=== PATIENT | female | born 1930 | race Caucasian/White ===

== ENCOUNTER → 2017-04-17 | Outpatient (CLI) | payer MEDICARE ==
[~2017-04-17] MED LIST: GABA-585 PO; LISI2.5T PO
--- NOTE | 2017-04-17 16:51 | RAD ---
Three-view right ankle study History: Right ankle pain Findings: There is a nondisplaced vertical fracture of the medial aspect of the distal right tibia involving the metaphysis and extending through the articular surface at the junction of the tibial plafond with the medial malleolus. There is anterior subluxation of the talus with respect to the tibia. No osteolytic process is seen. Prominent plantar spur of the calcaneus is evident. IMPRESSION: Fracture of the distal right tibia with anterior subluxation of the talus with respect to the distal right tibia. Note-this report was called to Kamille Lim at 4:47 PM on April 17, 2017.
== END | disposition home or self-care (01) ==
LOC: RAD 15:44
PROVIDERS: ATTEND Nurse Practitioner Family
DX: S82.301A Unspecified fracture of lower end of right tibia, initial encounter for closed fracture (principal); M77.31 Calcaneal spur, right foot
CPT/HCPCS: 73610

== ENCOUNTER → 2017-04-25 | Outpatient (CLI) | payer MEDICARE ==
--- NOTE | 2017-04-25 17:05 | RAD ---
3 views right ankle radiograph 04/25/2017 Clinical indication: Injury to the right ankle. Comparison: Right ankle radiograph 04/17/2017 Findings: There is diffuse bony demineralization. There is decreased conspicuity of a probable nondisplaced vertical fracture of the distal tibial metadiaphysis with probable intra-articular extension. There is unchanged anterior subluxation of the talus relative to the tibia. There is mild tibiotalar arthrosis with osteophytic spurring. There is infracalcaneal spurring. Impression: 1. Decreased conspicuity of a probable nondisplaced vertically oriented fracture of the medial distal tibial metadiaphysis with concern for intra-articular extension. 2. Stable anterior subluxation of the talus relative to the tibia. 3. Diffuse bony demineralization which limits evaluation for subtle fracture deformities.
== END | disposition home or self-care (01) ==
LOC: DXRAD 11:45
PROVIDERS: ATTEND Orthopaedic Surgery Sports Medicine
DX: S99.911A Unspecified injury of right ankle, initial encounter (principal); M81.0 Age-related osteoporosis without current pathological fracture; M25.871 Other specified joint disorders, right ankle and foot
CPT/HCPCS: 73610

== ENCOUNTER → 2017-05-08 | Outpatient (CLI) | payer MEDICARE ==
--- NOTE | 2017-05-08 11:34 | RAD ---
ANKLE RIGHT 3V Clinical Indication: PAIN Comparison: Ankle radiographs dated 04/25/2017 Findings: No significant change in position or alignment of the distal tibial metadiaphysis vertical fracture. Some bony bridging seen. No new fracture or malalignment. 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 Calcaneal enthesophytes. Suggestion of diffuse osteopenia. Vascular calcifications. Mild soft tissue swelling of the ankle. No radiopaque foreign body. IMPRESSION: 1. No significant change in position or alignment of the distal tibial metadiaphysis vertical fracture. Some bony bridging seen. No new fracture or malalignment. 2. Mild soft tissue swelling of the ankle. 3. 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
== END | disposition home or self-care (01) ==
LOC: DXRAD 10:33
PROVIDERS: ATTEND Orthopaedic Surgery Sports Medicine
DX: M25.571 Pain in right ankle and joints of right foot (principal); M19.071 Primary osteoarthritis, right ankle and foot; M25.471 Effusion, right ankle
CPT/HCPCS: 73610

== ENCOUNTER → 2017-05-23 | Outpatient (CLI) | payer MEDICARE ==
--- NOTE | 2017-05-23 12:22 | RAD ---
Indication: Follow-up ankle fracture. Technique: 3 views of the right ankle are submitted for review. Comparison studies from April were reviewed in comparison. Findings: There is some callus formation noted at the distal tibial fracture site. Fracture line is less apparent on the current study although a portion of the fracture line remains visible. An additional fracture is not identified and there is no dislocation. There is mild soft tissue swelling. Impression: Healing distal tibial fracture.
== END | disposition home or self-care (01) ==
LOC: DXRAD 10:31
PROVIDERS: ATTEND Orthopaedic Surgery Sports Medicine
DX: M25.571 Pain in right ankle and joints of right foot (principal); M25.771 Osteophyte, right ankle; S82.391S Other fracture of lower end of right tibia, sequela; X58.XXXS Exposure to other specified factors, sequela
CPT/HCPCS: 73610

== ENCOUNTER 2017-08-08 16:51 | Inpatient (IN) | payer MEDICARE ==
[~2017-08-08] VITALS: Ht 157.5 cm; Wt 91.6 kg
[2017-08-08] MEDS ORDERED: IV NORMAL SALINE 1,000ML 1,000 ML IV SCH (17:36)
[2017-08-08] MEDS ORDERED: 0.9 % SODIUM CHLORIDE 10 ML DISP.SYRIN. IV PRN (17:45)
--- NOTE | 2017-08-08 17:50 | PHYS DOC ---
Past History Past Medical History: High Cholesterol, Hypertension Adult General Chief Complaint Chief Complaint: weakness HPI HPI 87-year-old female patient who lives at assisted-living home brought by her daughters because of generalized weakness and increasing urination. Patient wears depends at night and complaining of more urine incontinence and wetting her depends at night. Patient states she had one episode of vomiting 4 days ago complaining of generalized weakness and confusion. Patient's daughter states she does not acting like her usual and is more weak and confused. Patient's daughter thinks she is dehydrated because she doesn't drink liquids to not have urine incontinence and accident. Patient denies chest pain, shortness of breath , fever and chills. She complained of marked congestion. Review of Systems Review of Systems Constitutional: Denies fever or chills, reports generalized weakness [] Eyes: Denies change in visual acuity, redness, or eye pain [] HENT: Denies nasal congestion or sore throat [] Respiratory: Denies cough or shortness of breath [] Cardiovascular: No additional information not addressed in HPI [] GI: Denies abdominal pain, bloody stools or diarrhea, reports nausea and vomiting [] : Denies dysuria or hematuria [] Musculoskeletal: Denies back pain or joint pain [] Integument: Denies rash or skin lesions [] Neurologic: Denies headache, focal weakness or sensory changes, reports confusion [] Endocrine: Denies polyuria or polydipsia [] All other systems were reviewed and found to be within normal limits, except as documented in this note. Current Medications Current Medications Current Medications Medications (Trade) Dose Ordered Sig/Margo Start Time Stop Time Status Last Admin Dose Admin Sodium Chloride (Normal Saline Flush) 10 ml QSHIFT PRN 08/08/17 17:45 Allergies Allergies Allergies Coded Allergies Type Severity Reaction Last Updated Verified No Known Drug Allergies 04/21/16 No Physical Exam Physical Exam Constitutional: Well developed, well nourished, mild distress, non-toxic appearance. [] HENT: Normocephalic, atraumatic, bilateral external ears normal, oropharynx moist, no oral exudates, nose normal. [] Eyes: PERRLA, EOMI, conjunctiva normal, no discharge. [] Neck: Normal range of motion, no tenderness, supple, no stridor. [] Cardiovascular:Heart rate regular rhythm, no murmur [] Lungs & Thorax: Bilateral breath sounds clear to auscultation [] Abdomen: Bowel sounds normal, soft, no tenderness, no masses, no pulsatile masses. [] Skin: Warm, dry, no erythema, no rash. [] Back: No tenderness, no CVA tenderness. [] Extremities: No tenderness, no cyanosis, no clubbing, ROM intact, no edema. [] Neurologic: Alert and oriented X 3, normal motor function, normal sensory function, no focal deficits noted. [] Psychologic: Affect normal, judgement normal, mood normal. [] EKG EKG [] Radiology/Procedures Radiology/Procedures [] Course & Med Decision Making Course & Med Decision Making Pertinent Labs are pending. Patient had a catheter UA with cloudy colored urine. Patient had blood pressure of 98/59 without tachycardia or fever or confusion. IV fluid and that was ordered. Patient care transferred to Dr. Carrion At [address]. See Dr[address] Horner report for details prior 1800 hrs. Impression: 1. Sepsis 2. UTI 3. Elevated Lactic Acid 4. Acute on Chronic Renal Failure 5. Leukocytosis and Thrombocytopenia 6. Elevated LFT's 7. Mild Hypotension 8. DM Discussed presentation, testing and tx. plan with Dr. Rae- will admit for further hydration, antibiotic and evaluation. Dragon Disclaimer Dragon Disclaimer This electronic medical record was generated, in whole or in part, using a voice recognition dictation system. Departure Departure: Impression: Primary Impression: Generalized weakness Referrals: KARRIE GOLDSMITH APRN (PCP) IRENA HORNER MD Aug 08, 2017 17:50 DENEEN CARRION MD Aug 08, 2017 18:06
[2017-08-08 18:00] LABS: CLARITY,URINE CLOUDY; COLOR,URINE YELLOW; GLUCOSE,URINE NEG (NEG)
[2017-08-08 18:00] LABS: BASO % 0 % (0-3); EOS % 0 % (0-3); HEMOGLOBIN 14.4 g/dL (12.0-15.5); LYMPH # 0.8 x10^3/uL (1.0-4.8); LYMPH % 2 % (24-48); MEAN CORPUSCULAR HEMOGLOBIN 31 pg (25-35); MEAN CORPUSCULAR HGB CONC 33 g/dL (31-37); MEAN CORPUSCULAR VOLUME 95 fL (79-100); MONO # 1.8 x10^3/uL (0.0-1.1); MONO % 5 % (0-9); NEUT # 33.5 x10^3uL (1.8-7.7); NEUT % 93 % (31-73); PLATELET COUNT 114 x10^3/uL (140-400); RED BLOOD COUNT 4.62 x10^6/uL (3.50-5.40); RED CELL DISTRIBUTION WIDTH 14.4 % (11.5-14.5); WHITE BLOOD COUNT 36.1 x10^3/uL (4.0-11.0)
[2017-08-08 18:01] LABS: AMORPHOUS SEDIMENT,UR PRESENT /HPF; BACTERIA,URINE MOD /HPF (0-FEW); BILIRUBIN,URINE MOD (NEG); NITRITE,URINE POS (NEG); SQUAMOUS EPITHELIAL CELL,UR OCC /LPF; UROBILINOGEN,URINE 1 mg/dL (0.2 mg/dL); WBC,URINE 20-40 /HPF (0-4)
[2017-08-08 18:17] LABS: ALBUMIN 3.4 g/dL (3.4-5.0); ALBUMIN/GLOBULIN RATIO 0.9 (1.0-1.7); CALCIUM 9.3 mg/dL (8.5-10.1); CREATININE 3.3 mg/dL (0.6-1.0); GFR 13.3; POTASSIUM 4.4 mmol/L (3.5-5.1); TOTAL BILIRUBIN 0.8 mg/dL (0.2-1.0); TOTAL PROTEIN 7.2 g/dL (6.4-8.2)
[2017-08-08] MEDS ORDERED: cefTRIAXone IV Push 1 GM VIAL. IVP ONE (18:30)
[2017-08-08] MEDS ORDERED: IV NORMAL SALINE 1,000ML 1,000 ML IV STA (18:45)
[2017-08-08] MEDS ORDERED: ONDANSETRON PF 4 MG/2 ML VIAL. IV PRN (18:45)
[2017-08-08 20:00] VITALS: BP 95/51
[2017-08-08] MEDS ORDERED: TRAM50TA PO (20:45)
[2017-08-08] MEDS ORDERED: OMEP20CA9 PO (20:53)
[2017-08-08] MEDS ORDERED: GABA-585 PO (20:53)
[2017-08-08] MEDS ORDERED: CRESTOR5 MG PO (20:53)
[2017-08-08] MEDS ORDERED: CALC500T30 PO (20:53)
[2017-08-08] MEDS ORDERED: LISI10TA2 PO (20:53)
[2017-08-08] MEDS ORDERED: MULT1TAB97 PO (20:55)
[2017-08-08] MEDS ORDERED: ACET325T9 PO (20:55)
[2017-08-08] MEDS ORDERED: ASPI-630 PO (20:55)
[2017-08-08] MEDS ORDERED: IBUP400T18 PO (20:56)
[2017-08-08 21:00] VITALS: BP 87/50
[2017-08-08] MEDS ORDERED: levoFLOXacin 500 MG TABLET PO SCH (21:00)
[2017-08-08] MEDS ORDERED: traMADol 50 MG TABLET PO PRN (21:15)
[2017-08-08 22:00] VITALS: BP 114/60
[2017-08-08] MEDS: GABAPENTIN 400 MG CAPSULE. PO SCH (22:18)
[2017-08-08] MEDS: LACTOBACILLUS RHAMNOSUS GG 1 CAPSULE. PO SCH (22:18)
[2017-08-08] MEDS: ATORVASTATIN CALCIUM 20 MG TABLET PO SCH (22:18)
[2017-08-08 22:24] LABS: % LYMPHS 3 % (24-48); % METAS 5 % (0-0); % MONOS 1 % (0-10)
[2017-08-08 22:25] LABS: % SEGS 91 % (35-66)
[2017-08-08 22:27] LABS: OVALOCYTES OCC; PLT ESTIMATE ADEQUATE (ADEQUATE); POLYCHROMASIA SLIGHT; TOXIC GRANULATION SLIGHT
[2017-08-08 23:00] VITALS: BP 88/52
[2017-08-08 23:30] VITALS: BP 66/34
[2017-08-08 23:45] VITALS: BP 79/44
[2017-08-09] VITALS (54 sets, daily range): BP systolic 53–151; BP diastolic 27–87
[2017-08-09] MEDS ORDERED: NOREPINEPHRINE BITARTRATE 4 MG/4 ML VIAL. IV ONE (00:17)
[2017-08-09] MEDS: NOREPINEPHRINE BITARTRATE 8 MG in IV NORMAL SALINE 250ML 250 ML IV PRN ×2 (00:38→09:26)
[2017-08-09] MEDS ORDERED: IV NORMAL SALINE 1,000ML 1,000 ML IV ONE ×2 (01:15→03:15)
[2017-08-09] MEDS: IV NORMAL SALINE 1,000ML 1,000 ML IV SCH ×3 (04:32→20:31)
[2017-08-09] MEDS: PIPERACILLIN/TAZOBACTAM 2.25 GM in IV NORMAL SALINE 50ML 50 ML IV SCH ×3 (04:45→21:49)
[2017-08-09 06:55] LABS: BASO % 0 % (0-3); EOS % 0 % (0-3); HEMATOCRIT 38.9 % (36.0-47.0); HEMOGLOBIN 12.8 g/dL (12.0-15.5); LYMPH # 0.4 x10^3/uL (1.0-4.8); LYMPH % 2 % (24-48); MEAN CORPUSCULAR HEMOGLOBIN 32 pg (25-35); MEAN CORPUSCULAR HGB CONC 33 g/dL (31-37); MEAN CORPUSCULAR VOLUME 95 fL (79-100); MONO # 0.5 x10^3/uL (0.0-1.1); MONO % 2 % (0-9); NEUT # 23.9 x10^3uL (1.8-7.7); NEUT % 96 % (31-73); PLATELET COUNT 84 x10^3/uL (140-400); RED BLOOD COUNT 4.08 x10^6/uL (3.50-5.40); RED CELL DISTRIBUTION WIDTH 14.3 % (11.5-14.5); WHITE BLOOD COUNT 24.8 x10^3/uL (4.0-11.0)
[2017-08-09 06:58] LABS: CALCIUM 7.9 mg/dL (8.5-10.1); CREATININE 3.3 mg/dL (0.6-1.0); GFR 13.3; POTASSIUM 3.9 mmol/L (3.5-5.1)
--- NOTE | 2017-08-09 07:21 | EKG ---
[address] [address] Test Date: 2017-08-09 Test Time: 07:09:35 Pat Name: SHAYY BUCHANAN Department: Room: [facility] 1 Gender: F Liner Replacer: : [id number] Requested By: KATIE MONDRAGON Order Number: [id number] Reading MD: Measurements Intervals [place] Rate: 115 P: TX: QRS: -14 QRSD: 68 T: 26 QT: 292 QTc: 406 Interpretive Statements IRREGULAR RHYTHM, NO P-WAVE FOUND LEFTWARD AXIS QRS(T) CONTOUR ABNORMALITY CONSISTENT WITH INFERIOR INFARCT PROBABLY OLD ABNORMAL ECG RI6.01 No previous ECG available for comparison
[2017-08-09] MEDS: CALCIUM CARBONATE 500 MG TABLET PO SCH (07:59)
[2017-08-09] MEDS: MULTIVITAMIN I-VITE TABLET. PO SCH (07:59)
[2017-08-09] MEDS: ACETAMINOPHEN 325 MG TABLET PO PRN (07:59)
[2017-08-09] MEDS: PANTOPRAZOLE 40 MG TABLET. PO SCH (07:59)
[2017-08-09] MEDS: ASPIRIN 81 MG TAB.CHEW PO SCH (07:59)
[2017-08-09] MEDS: LACTOBACILLUS RHAMNOSUS GG 1 CAPSULE. PO SCH ×2 (07:59→21:49)
[2017-08-09] MEDS: GABAPENTIN 400 MG CAPSULE. PO SCH ×2 (07:59→21:49)
[2017-08-09] MEDS ORDERED: MAGNESIUM SULFATE 2GM 50 ML IV ONE (08:15)
[2017-08-09] MEDS ORDERED: cefTRIAXone IV Push 1 GM VIAL. IVP SCH (09:00)
[2017-08-09 09:09] LABS: INFLUENZA A PATIENT NEGATIVE (NEGATIVE); INFLUENZA B PATIENT NEGATIVE (NEGATIVE)
--- NOTE | 2017-08-09 09:11 | PDOC2 ---
JARED GALINDO APRN 08/09/17 0911: CONSULT Date of Admission DATE: 08/09/17 TIME: 09:09 Reason for Consult: tachycardia Problem List Problems Medical Problems: (1) Generalized weakness Status: Acute (2) UTI (urinary tract infection) Status: Acute History of Present Illness Ms Trimble is an 87 year old female with history of hypertension and hyperlipidemia who was brought to the ED by her daughters with complaints of generalized weakness, confusion and increased nocturia. She was found to have urosepsis and admitted for management. EKG revealed atrial fibrillation with RVR so consult was called. She denies any chest discomfort, dyspnea or palpitations. She has no prior history of atrial fibrillation. She denies lightheadedness or syncope. Her daughter reports that previously she would complain of increased nocturia when she had UTIs and they had planned a follow up with PCP but with other symptoms came to ED instead. Past Medical History HTN, HLD, renal cyst and kidney stones, recurrent UTIs Past Surgical History back surgery x 2 secondary to benign mass, bilateral knee surgery, hip surgery, cholecystectomy Family History non contributory due to age Social History remote history of tobacco use, no significant ETOH, no illicit drugs, lives in assisted living facility. Current Medications Current Medications Sodium Chloride 1,000 ml @ 1,000 mls/hr Q1H IV Last administered on 08/08/17at 17:50; Start 08/08/17 at 17:36; Stop 08/08/17 at 18:35; Status DC Sodium Chloride (Normal Saline Flush) 10 ml QSHIFT PRN IV AFTER MEDS AND BLOOD DRAWS; Start 08/08/17 at 17:45 Ceftriaxone Sodium 1 gm/ Sodium Chloride 50 ml @ 100 mls/hr 1X ONCE IV ; Start 08/08/17 at 18:15; Stop 08/08/17 at 18:44; Status UNV Ceftriaxone Sodium (Rocephin) 1 gm 1X ONCE IVP Last administered on 08/08/17at 18:30; Start 08/08/17 at 18:30; Stop 08/08/17 at 18:31; Status DC Ondansetron HCl (Zofran) 4 mg PRN Q4HRS PRN IV NAUSEA/VOMITING; Start 08/08/17 at 18:45; Stop 08/09/17 at 18:44 Ceftriaxone Sodium 1 gm/ Sodium Chloride 50 ml @ 100 mls/hr BID IV ; Start at 21:00; Status UNV Levofloxacin (Levaquin) 500 mg Q24H PO Last administered on 08/08/17at 22:18; Start 08/08/17 at 21:00; Stop 08/09/17 at 03:10; Status DC Sodium Chloride 1,000 ml @ 2,000 mls/hr 1X STAT IV Last administered on at 21:32; Start 08/08/17 at 18:45; Stop 08/08/17 at 19:14; Status DC Lactobacillus Rhamnosus (Culturelle) 1 cap BID PO Last administered on at 07:59; Start 08/08/17 at 21:00 Ceftriaxone Sodium (Rocephin) 1 gm BID IVP ; Start 08/09/17 at 09:00; Stop 08/09 at 09:00; Status DC Acetaminophen (Tylenol) 650 mg PRN Q6HRS PRN PO PAIN / TEMP Last administered on 08/09/17at 07:59; Start 08/08/17 at 21:15 Aspirin (Children'S Aspirin) 81 mg DAILY PO Last administered on 08/09/17at 07: 59; Start 08/09/17 at 09:00 Calcium Carbonate/ Glycine (Oscal) 500 mg DAILY PO Last administered on at 07:59; Start 08/09/17 at 09:00 Gabapentin (Neurontin) 400 mg BID PO Last administered on 08/09/17at 07:59; Start 08/08/17 at 21:30 Tramadol HCl (Ultram) 50 mg PRN Q6HRS PRN PO PAIN; Start 08/08/17 at 21:15 Multivitamins/ Minerals (I-Siva) 1 tab DAILY PO Last administered on 08/09/17at 07:59; Start 08/09/17 at 09:00 Pantoprazole Sodium (Protonix) 40 mg DAILYAC PO Last administered on 08/09/17at 07:59; Start 08/09/17 at 07:30 Atorvastatin Calcium (Lipitor) 20 mg QHS PO Last administered on 08/08/17at 22: 18; Start 08/08/17 at 21:30 Norepinephrine Bitartrate 8 mg/ Sodium Chloride 258 ml @ 0 mls/hr CONT PRN IV SEE I/O RECORD Last administered on 08/09/17at 00:38; Start 08/09/17 at 00:15 Norepinephrine Bitartrate (Levophed) 4 mg STK-MED ONCE IV ; Start 08/09/17 at 00 :17; Stop 08/09/17 at 00:18; Status DC Sodium Chloride 1,000 ml @ 2,000 mls/hr 1X ONCE IV Last administered on at 22:40; Start 08/09/17 at 01:15; Stop 08/09/17 at 01:44; Status DC Piperacillin Sod/ Tazobactam Sod 2.25 gm/Sodium Chloride 50 ml @ 100 mls/hr Q8HRS IV Last administered on 08/09/17at 04:45; Start 08/09/17 at 06:00 Linezolid 300 ml @ 300 mls/hr Q12HR IV Last administered on 08/09/17at 08:00; Start 08/09/17 at 09:00 Sodium Chloride 1,000 ml @ 1,000 mls/hr 1X ONCE IV Last administered on at 03:32; Start 08/09/17 at 03:15; Stop 08/09/17 at 04:47; Status DC Sodium Chloride 1,000 ml @ 125 mls/hr Q8H IV Last administered on 08/09/17at 04 :32; Start 08/09/17 at 03:15 Magnesium Sulfate 50 ml @ 25 mls/hr 1X ONCE IV ; Start 08/09/17 at 08:15; Stop 08/09/17 at 10:14 Active Scripts Active Reported Ibuprofen 400 Mg Tablet 1 Tab PO PRN Q6HRS PRN Tylenol (Acetaminophen) 325 Mg Tablet 650 Mg PO PRN Q4-6HRS PRN Daily Multiple Vitamin (Multivitamin) 1 Each Tablet 1 Each PO Aspirin 81 Mg Tab.chew 81 Mg PO DAILY Calcium (Calcium Carbonate) 500 Mg Tablet 500 Mg PO DAILY Crestor (Rosuvastatin Calcium) 5 Mg Tablet 1 Tab PO Q2DAYS Lisinopril 10 Mg Tablet 1 Tab PO DAILY Omeprazole 20 Mg Capsule.dr 1 Cap PO DAILY Gabapentin 100 Mg Capsule 400 Mg PO BID Tramadol Hcl (Tramadol HCl) 50 Mg Tablet 50 Mg PO PRN Q6HRS PRN Allergies: Coded Allergies: No Known Drug Allergies (Unverified , 04/21/16) Review of System as per HPI General: Alert, Oriented X3, Cooperative, No acute distress HEENT: Atraumatic, EOMI, Mucous membr. moist/pink Lungs: Clear to auscultation, Normal air movement Heart: Regular rate, Normal S1, Normal S2 Abdomen: Normal bowel sounds, Soft, No tenderness Extremities: No cyanosis, Normal pulses Neuro: Normal speech, Strength at 5/5 X4 ext Psych/Mental Status: Mental status NL, Mood NL VITALS Vital Signs Date Time Temp Pulse Resp B/P (MAP) Pulse Ox O2 Delivery O2 Flow Rate FiO2 08/09/17 08:27 Room Air 08/09/17 08:27 100.7 08/09/17 08:26 102 20 100/73 (82) 97 2.0 Labs Laboratory Tests Test 08/08/17 17:25 08/08/17 17:40 08/08/17 21:55 08/08/17 22:50 Urine Collection Type U cath Urine Color Yellow Urine Clarity Cloudy Urine pH 5.0 Urine Specific [place] 1.025 Urine Protein 100 mg/dl (NEG-TRACE) Urine Glucose (UA) Neg mg/dL (NEG) Urine Ketones (Stick) 15 mg/dL (NEG) Urine Blood Mod (NEG) Urine Nitrite Pos (NEG) Urine Bilirubin Mod (NEG) Urine Urobilinogen Dipstick 1 mg/dL (0.2 mg/dL) Urine Leukocyte Esterase Large (NEG) Urine RBC 3-5 /HPF (0-2) Urine WBC 20-40 /HPF (0-4) Urine Squamous Epithelial Cells Occ /LPF Urine Amorphous Sediment Present /HPF Urine Bacteria Mod /HPF (0-FEW) Urine Mucus Mod /LPF White Blood Count 36.1 x10^3/uL (4.0-11.0) Red Blood Count 4.62 x10^6/uL (3.50-5.40) Hemoglobin 14.4 g/dL (12.0-15.5) Hematocrit 44.0 % (36.0-47.0) Mean Corpuscular Volume 95 fL (79-100) Mean Corpuscular Hemoglobin 31 pg (25-35) Mean Corpuscular Hemoglobin Concent 33 g/dL (31-37) Red Cell Distribution Width 14.4 % (11.5-14.5) Platelet Count 114 x10^3/uL (140-400) Neutrophils (%) (Auto) 93 % (31-73) Lymphocytes (%) (Auto) 2 % (24-48) Monocytes (%) (Auto) 5 % (0-9) Eosinophils (%) (Auto) 0 % (0-3) Basophils (%) (Auto) 0 % (0-3) Neutrophils # (Auto) 33.5 x10^3uL (1.8-7.7) Lymphocytes # (Auto) 0.8 x10^3/uL (1.0-4.8) Monocytes # (Auto) 1.8 x10^3/uL (0.0-1.1) Eosinophils # (Auto) 0.0 x10^3/uL (0.0-0.7) Basophils # (Auto) 0.0 x10^3/uL (0.0-0.2) Segmented Neutrophils % 91 % (35-66) Band Neutrophils % % (0-9) Lymphocytes % 3 % (24-48) Monocytes % 1 % (0-10) Metamyelocytes % 5 % (0-0) Toxic Granulation Slight Platelet Estimate Adequate (ADEQUATE) Large Platelets Occ Polychromasia Slight Ovalocytes Occ Sodium Level 140 mmol/L (136-145) Potassium Level 4.4 mmol/L (3.5-5.1) Chloride Level 102 mmol/L (98-107) Carbon Dioxide Level 21 mmol/L (21-32) Anion Gap 17 (6-14) Blood Urea Nitrogen 43 mg/dL (7-20) Creatinine 3.3 mg/dL (0.6-1.0) Estimated GFR (Cockcroft-Gault) 13.3 BUN/Creatinine Ratio 13 (6-20) Glucose Level 120 mg/dL (70-99) Lactic Acid Level 6.1 mmol/L (0.4-2.0) 5.9 mmol/L (0.4-2.0) Calcium Level 9.3 mg/dL (8.5-10.1) Total Bilirubin 0.8 mg/dL (0.2-1.0) Aspartate Amino Transf (AST/SGOT) 87 U/L (15-37) Alanine Aminotransferase (ALT/SGPT) 95 U/L (14-59) Alkaline Phosphatase 78 U/L (46-116) Troponin I Quantitative < 0.017 ng/mL (0-0.055) 0.019 ng/mL (0-0.055) Total Protein 7.2 g/dL (6.4-8.2) Albumin 3.4 g/dL (3.4-5.0) Albumin/Globulin Ratio 0.9 (1.0-1.7) Test 08/09/17 02:00 08/09/17 05:41 08/09/17 08:16 Lactic Acid Level 6.2 mmol/L (0.4-2.0) 5.0 mmol/L (0.4-2.0) White Blood Count 24.8 x10^3/uL (4.0-11.0) Red Blood Count 4.08 x10^6/uL (3.50-5.40) Hemoglobin 12.8 g/dL (12.0-15.5) Hematocrit 38.9 % (36.0-47.0) Mean Corpuscular Volume 95 fL (79-100) Mean Corpuscular Hemoglobin 32 pg (25-35) Mean Corpuscular Hemoglobin Concent 33 g/dL (31-37) Red Cell Distribution Width 14.3 % (11.5-14.5) Platelet Count 84 x10^3/uL (140-400) Neutrophils (%) (Auto) 96 % (31-73) Lymphocytes (%) (Auto) 2 % (24-48) Monocytes (%) (Auto) 2 % (0-9) Eosinophils (%) (Auto) 0 % (0-3) Basophils (%) (Auto) 0 % (0-3) Neutrophils # (Auto) 23.9 x10^3uL (1.8-7.7) Lymphocytes # (Auto) 0.4 x10^3/uL (1.0-4.8) Monocytes # (Auto) 0.5 x10^3/uL (0.0-1.1) Eosinophils # (Auto) 0.0 x10^3/uL (0.0-0.7) Basophils # (Auto) 0.0 x10^3/uL (0.0-0.2) Sodium Level 141 mmol/L (136-145) Potassium Level 3.9 mmol/L (3.5-5.1) Chloride Level 107 mmol/L (98-107) Carbon Dioxide Level 17 mmol/L (21-32) Anion Gap 17 (6-14) Blood Urea Nitrogen 47 mg/dL (7-20) Creatinine 3.3 mg/dL (0.6-1.0) Estimated GFR (Cockcroft-Gault) 13.3 Glucose Level 81 mg/dL (70-99) Calcium Level 7.9 mg/dL (8.5-10.1) Magnesium Level 1.3 mg/dL (1.8-2.4) Group A Streptococcus Rapid Negative (NEGATIVE) Images EKG - atrial fibrillation, early R transition Assessment/Plan 1. paroxysmal atrial fibrillation - currently in sinus rhythm. Check echo. 2. urosepsis / septic shock - currently on levophed and fluid resuscitation. Abx per PCP 3. ARF - fluids, monitor 4. hypertension - currently on pressors, hold antihypertensives 5. hyperlipidemia - continue statin 6. mild hepatic insufficiency - AST/ALT remain <3x ULN. Monitor. 7. hypomagnesemia - replace. Problems: ISABELLE CUENCA MD 08/09/17 1239: CONSULT Allergies: Coded Allergies: No Known Drug Allergies (Unverified , 04/21/16) Assessment/Plan Pt. seen and examined. Agree with above CHEMOTHERAPIST note. Critically ill due to urosepsis on pressors. EKG reviewed - reveals ST with PAC's. No afib. Cardiac exam unrevealing. NO clear signs of HF. Supportive care for now. Await echo results. Consider Phenylephrine for pressors if levophed causes significant tachycardia Discussed with RN Problems: JARED GALINDO APRN Aug 09, 2017 09:11 ISABELLE CUENCA MD Aug 09, 2017 12:39
--- NOTE | 2017-08-09 14:20 | RAD ---
Renal ultrasound, 08/09/2017: History: Abnormal renal function studies. The right kidney measures 10.2 cm in length, while the left kidney measures 10.6 cm. There is a 4.9 cm septated cyst versus cluster in the right kidney. There are 2 cysts in the right kidney with the largest of these measuring 3.3 cm. More numerous simple cysts were identified on a prior CT study of 04/21/2016. Small left renal calculi seen on the previous CT study are not clearly demonstrated on the ultrasound exam, probably due to technical factors. There is mild prominence of the left renal collecting system. The renal parenchymal echogenicity is otherwise within normal limits. The bladder is collapsed and not adequately delineated due to the presence of a bladder catheter. IMPRESSION: 1. Bilateral renal cysts. 2. Mild dilatation of left renal collecting system. If a left ureteral calculus is clinically suspected, CT scanning is suggested for further evaluation.
--- NOTE | 2017-08-09 14:50 | HP ---
ADMIT DATE: 08/08/2017 REASON FOR ADMISSION: This is an 87-year-old female who was brought to the Emergency Room from her home where she resides at assisted living because of generalized weakness and increased urination. According to the Emergency Room record she wears Depends at night and was complaining of more incontinence and wearing her Depends at night. Daughter states not acting like her usual self, more weak and tired and feels that she is dehydrated because she does not want to drink and become incontinent. The patient states she herself has been sick since Monday night. She threw up fatter Monday. She has been queasy, had some back pain, urinary frequency. Positive sore throat. Nothing wrong with her ears. Negative cough, negative shortness of breath. She denies weakness herself. 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 MEDICATIONS: Reviewed and are available on the AUG. IMMUNIZATIONS: Did get the flu shot last year and has had the pneumonia shot. REVIEW OF SYSTEMS: As per HPI, weak, flushed, febrile. OBJECTIVE: VITAL SIGNS: T-max is 100.7, this morning 99.7; blood pressure 111/78; pulse 96; respirations 18; pulse ox 97% on 2 liters. Face is quite flushed. HEENT: Hearing is normal. Nose was patent. Throat mildly injected in the posterior pharynx. NECK: Supple, without adenopathy. LUNGS: Clear to auscultation. CARDIOVASCULAR: Rapid rhythm and rate. ABDOMEN: Soft, mildly diffusely tender, but very soft. Bowel sounds are positive. EXTREMITIES: Without edema. LABORATORY DATA: White count was 36.1, platelets 114,000. Chemistry: BUN is 47, creatinine 3.3. Lactic acid was 6.2, now it is 5.0. She had a lactic acid of 6.1 yesterday afternoon and her BUN was 43 and creatinine was 3.3. Flu is negative. Strep is negative. Ultrasound report of her kidneys is pending. ASSESSMENT: 1. Acute renal failure. 2. Febrile illness. Flu was negative. 3. Dehydration. 4. Sepsis with urinary tract infection. 5. Frail elderly. 6. Hypertension. 7. Septic shock. PLAN: IV fluids. I and O. IV antibiotics. Is on Levophed currently and blood pressure is starting to improve. CONSUELO HUGHES DO DR: JESSI/sam JOB#: [id number] / [id number]
--- NOTE | 2017-08-09 16:50 | CARD ---
MR#: [id number] Date of Study: 08/09/2017 Ordering Physician: JARED GALINDO, Referring Physician: KATIE MONDRAGON Tech: ANSLEY Guillen APPROVED REPORT EXAM: Two-dimensional and M-mode echocardiogram with Doppler and color Doppler. Other Information Quality : AverageHR: 101bpm Technically limited study due to off axis heart. INDICATION Atrial Fibrillation 2D DIMENSIONS Left Atrium(2D)3.5 (1.6-4.0cm)IVSd1.2 (0.7-1.1cm) Aortic Root(2D)3.0 (2.0-3.7cm)LVDd4.5 (3.9-5.9cm) LVOT Diameter2.1 (1.8-2.4cm)PWd1.3 (0.7-1.1cm) LVDs3.2 (2.5-4.0cm)FS (%) 28.9 % SV51.1 mlLVEF(%)55.8 (>50%) Aortic Valve AoV Peak Bin.125.1cm/sAoV VTI21.0cm AO Peak GR.6.3mmHgLVOT Peak Bin.82.8cm/s AO Mean GR.4mmHgAVA (VMAX)2.38cm2 AI P 1/2 [id number] Mitral Valve MV E Wqbzckuj65.0cm/sMV E Peak Gr.90mmHg MV DECEL [id number] A Wnvtwkkn66.9cm/s E/A Ratio1.1 Pulmonary Valve PV Peak Bhcsvhnn259.6cm/sPV Peak Grad.9mmHg Tricuspid Valve TR P. Hbwtzhhr343pz/sTR Peak Gr.29mmHg LEFT VENTRICLE The left ventricle is normal size. There is mild concentric left ventricular hypertrophy. The left ve ntricular systolic function is normal. The ejection fraction is 55-60%. There is normal LV segmental wall motion. Transmitral Doppler flow pattern is abnormal. RIGHT VENTRICLE The right ventricle is normal size. The right ventricular systolic function is normal. ATRIA The left atrium is mildly dilated. The right atrium size is normal. The interatrial septum is intact with no evidence for an atrial septal defect or patent foramen ovale as noted on 2-D or Doppler imagi ng. AORTIC VALVE The aortic valve is thickened but opens well. Doppler and Color Flow revealed trace aortic regurgitat ion. There is no significant aortic valvular stenosis. There is no aortic valvular vegetation. MITRAL VALVE The mitral valve is thickened but opens well. There is no evidence of mitral valve prolapse. There is no mitral valve stenosis. Doppler and Color-flow revealed trace to mild mitral regurgitation. TRICUSPID VALVE The tricuspid valve leaflets are thickened , but open well. Doppler and Color Flow revealed trace tri cuspid valve regurgitation. There is no tricuspid valve prolapse or vegetation. There is no tricuspid valve stenosis. PULMONIC VALVE The pulmonic valve is not well visualized. Doppler and Color Flow revealed no pulmonic valvular regur gitation. There is no pulmonic valvular stenosis. GREAT VESSELS The aortic root is normal in size. The IVC was not visualized. PERICARDIAL EFFUSION There is no pleural effusion. There is no evidence of significant pericardial effusion. Critical Notification Critical Value: No <Conclusion> The left ventricle is normal size. The left ventricular systolic function is normal. The ejection fraction is 55-60%. There is mild concentric left ventricular hypertrophy. There is no significant aortic valvular stenosis. Doppler and Color Flow revealed trace aortic regurgitation. Doppler and Color-flow revealed trace to mild mitral regurgitation. Doppler and Color Flow revealed trace tricuspid valve regurgitation. Signed by : Oc Stephens MD Electronically Approved : 08/09/2017 16:49:58
[2017-08-09] MEDS: ATORVASTATIN CALCIUM 20 MG TABLET PO SCH (21:49)
[2017-08-10] VITALS (21 sets, daily range): BP systolic 80–134; BP diastolic 48–74
[2017-08-10] MEDS ORDERED: IPRATRPIUM/ALBUTEROL 0.5/2.5MG 3 ML NEBU. NEB PRN (00:30)
[2017-08-10] MEDS: IV NORMAL SALINE 1,000ML 1,000 ML IV SCH ×3 (03:28→21:59)
[2017-08-10] MEDS: PIPERACILLIN/TAZOBACTAM 2.25 GM in IV NORMAL SALINE 50ML 50 ML IV SCH (05:30)
[2017-08-10 06:25] LABS: BASO % 0 % (0-3); EOS # 1.1 x10^3/uL (0.0-0.7); EOS % 7 % (0-3); HEMATOCRIT 34.5 % (36.0-47.0); HEMOGLOBIN 11.6 g/dL (12.0-15.5); LYMPH # 0.7 x10^3/uL (1.0-4.8); LYMPH % 5 % (24-48); MEAN CORPUSCULAR HEMOGLOBIN 32 pg (25-35); MEAN CORPUSCULAR HGB CONC 34 g/dL (31-37); MEAN CORPUSCULAR VOLUME 95 fL (79-100); MONO # 0.4 x10^3/uL (0.0-1.1); MONO % 2 % (0-9); NEUT # 13.9 x10^3uL (1.8-7.7); NEUT % 86 % (31-73); PLATELET COUNT 72 x10^3/uL (140-400); RED BLOOD COUNT 3.63 x10^6/uL (3.50-5.40); RED CELL DISTRIBUTION WIDTH 14.3 % (11.5-14.5); WHITE BLOOD COUNT 16.2 x10^3/uL (4.0-11.0)
[2017-08-10 06:35] LABS: ALBUMIN 2.1 g/dL (3.4-5.0); ALBUMIN/GLOBULIN RATIO 0.6 (1.0-1.7); CALCIUM 7.6 mg/dL (8.5-10.1); CREATININE 1.9 mg/dL (0.6-1.0); GFR 25.1; POTASSIUM 4.2 mmol/L (3.5-5.1); TOTAL BILIRUBIN 0.5 mg/dL (0.2-1.0); TOTAL PROTEIN 5.4 g/dL (6.4-8.2)
[2017-08-10] MEDS: PANTOPRAZOLE 40 MG TABLET. PO SCH (06:38)
[2017-08-10] MEDS: LACTOBACILLUS RHAMNOSUS GG 1 CAPSULE. PO SCH ×2 (08:01→20:38)
[2017-08-10] MEDS: CALCIUM CARBONATE 500 MG TABLET PO SCH (08:01)
[2017-08-10] MEDS: GABAPENTIN 400 MG CAPSULE. PO SCH ×2 (08:02→20:38)
[2017-08-10] MEDS: MULTIVITAMIN I-VITE TABLET. PO SCH (08:02)
[2017-08-10] MEDS: ASPIRIN 81 MG TAB.CHEW PO SCH (08:02)
--- NOTE | 2017-08-10 10:06 | PDOC ---
PROGRESS NOTES Diagnosis Problem Problems Medical Problems: (1) Generalized weakness Status: Acute (2) UTI (urinary tract infection) Status: Acute Assessment Problems Medical Problems: (1) Generalized weakness Status: Acute (2) UTI (urinary tract infection) Status: Acute 1. sinus tachycardia - reactive 2. urosepsis / septic shock - off pressors, Abx per PCP 3. ARF - improving with fluids 4. hypertension - off pressors, monitor and resume antihypertensives when indicated. 5. hyperlipidemia - continue statin 6. mild hepatic insufficiency - AST/ALT remain <3x ULN. Monitor. 7. hypomagnesemia - resolved with replacement Problems: Subjective up in chair, feeling better, no chest pain, no dyspnea, no palpitations Objective Vital Signs Date Time Temp Pulse Resp B/P (MAP) Pulse Ox O2 Delivery O2 Flow Rate FiO2 08/10/17 08:00 Room Air 08/10/17 07:00 84 21 97/56 (70) 98 2.0 08/10/17 06:09 98.5 Intake and Output 08/10/17 07:00 Intake Total 4690 ml Output Total 1225 ml Balance 3465 ml Intake Oral 1940 ml IV Total 2750 ml Output Urine Total 1225 ml Abdomen: Normal bowel sounds, Soft, No tenderness Heart: Regular rate, Normal S1, Normal S2, Other (no M/C/R, no gallops) Extremities: No cyanosis, Normal pulses General: Alert, Oriented X3, Cooperative, No acute distress HEENT: Atraumatic, EOMI Lungs: Clear to auscultation, Normal air movement Neuro: Normal speech, Strength at 5/5 X4 ext Psych/Mental Status: Mental status NL, Mood NL Review of Relevant I have reviewed the following items phil (where applicable) has been applied. Labs Laboratory Tests Test 08/08/17 17:25 08/08/17 17:40 08/08/17 21:15 08/08/17 21:55 Urine Collection Type U cath Urine Color Yellow Urine Clarity Cloudy Urine pH 5.0 Urine Specific [place] 1.025 Urine Protein 100 mg/dl (NEG-TRACE) Urine Glucose (UA) Neg mg/dL (NEG) Urine Ketones (Stick) 15 mg/dL (NEG) Urine Blood Mod (NEG) Urine Nitrite Pos (NEG) Urine Bilirubin Mod (NEG) Urine Urobilinogen Dipstick 1 mg/dL (0.2 mg/dL) Urine Leukocyte Esterase Large (NEG) Urine RBC 3-5 /HPF (0-2) Urine WBC 20-40 /HPF (0-4) Urine Squamous Epithelial Cells Occ /LPF Urine Amorphous Sediment Present /HPF Urine Bacteria Mod /HPF (0-FEW) Urine Mucus Mod /LPF White Blood Count 36.1 x10^3/uL (4.0-11.0) Red Blood Count 4.62 x10^6/uL (3.50-5.40) Hemoglobin 14.4 g/dL (12.0-15.5) Hematocrit 44.0 % (36.0-47.0) Mean Corpuscular Volume 95 fL (79-100) Mean Corpuscular Hemoglobin 31 pg (25-35) Mean Corpuscular Hemoglobin Concent 33 g/dL (31-37) Red Cell Distribution Width 14.4 % (11.5-14.5) Platelet Count 114 x10^3/uL (140-400) Neutrophils (%) (Auto) 93 % (31-73) Lymphocytes (%) (Auto) 2 % (24-48) Monocytes (%) (Auto) 5 % (0-9) Eosinophils (%) (Auto) 0 % (0-3) Basophils (%) (Auto) 0 % (0-3) Neutrophils # (Auto) 33.5 x10^3uL (1.8-7.7) Lymphocytes # (Auto) 0.8 x10^3/uL (1.0-4.8) Monocytes # (Auto) 1.8 x10^3/uL (0.0-1.1) Eosinophils # (Auto) 0.0 x10^3/uL (0.0-0.7) Basophils # (Auto) 0.0 x10^3/uL (0.0-0.2) Segmented Neutrophils % 91 % (35-66) Band Neutrophils % % (0-9) Lymphocytes % 3 % (24-48) Monocytes % 1 % (0-10) Metamyelocytes % 5 % (0-0) Toxic Granulation Slight Platelet Estimate Adequate (ADEQUATE) Large Platelets Occ Polychromasia Slight Ovalocytes Occ Sodium Level 140 mmol/L (136-145) Potassium Level 4.4 mmol/L (3.5-5.1) Chloride Level 102 mmol/L (98-107) Carbon Dioxide Level 21 mmol/L (21-32) Anion Gap 17 (6-14) Blood Urea Nitrogen 43 mg/dL (7-20) Creatinine 3.3 mg/dL (0.6-1.0) Estimated GFR (Cockcroft-Gault) 13.3 BUN/Creatinine Ratio 13 (6-20) Glucose Level 120 mg/dL (70-99) Lactic Acid Level 6.1 mmol/L (0.4-2.0) 5.9 mmol/L (0.4-2.0) Calcium Level 9.3 mg/dL (8.5-10.1) Total Bilirubin 0.8 mg/dL (0.2-1.0) Aspartate Amino Transf (AST/SGOT) 87 U/L (15-37) Alanine Aminotransferase (ALT/SGPT) 95 U/L (14-59) Alkaline Phosphatase 78 U/L (46-116) Troponin I Quantitative < 0.017 ng/mL (0-0.055) Total Protein 7.2 g/dL (6.4-8.2) Albumin 3.4 g/dL (3.4-5.0) Albumin/Globulin Ratio 0.9 (1.0-1.7) Nasal Screen MRSA (PCR) Negative (Negative) Test 08/08/17 22:50 08/09/17 02:00 08/09/17 05:41 08/09/17 08:16 Troponin I Quantitative 0.019 ng/mL (0-0.055) Lactic Acid Level 6.2 mmol/L (0.4-2.0) 5.0 mmol/L (0.4-2.0) White Blood Count 24.8 x10^3/uL (4.0-11.0) Red Blood Count 4.08 x10^6/uL (3.50-5.40) Hemoglobin 12.8 g/dL (12.0-15.5) Hematocrit 38.9 % (36.0-47.0) Mean Corpuscular Volume 95 fL (79-100) Mean Corpuscular Hemoglobin 32 pg (25-35) Mean Corpuscular Hemoglobin Concent 33 g/dL (31-37) Red Cell Distribution Width 14.3 % (11.5-14.5) Platelet Count 84 x10^3/uL (140-400) Neutrophils (%) (Auto) 96 % (31-73) Lymphocytes (%) (Auto) 2 % (24-48) Monocytes (%) (Auto) 2 % (0-9) Eosinophils (%) (Auto) 0 % (0-3) Basophils (%) (Auto) 0 % (0-3) Neutrophils # (Auto) 23.9 x10^3uL (1.8-7.7) Lymphocytes # (Auto) 0.4 x10^3/uL (1.0-4.8) Monocytes # (Auto) 0.5 x10^3/uL (0.0-1.1) Eosinophils # (Auto) 0.0 x10^3/uL (0.0-0.7) Basophils # (Auto) 0.0 x10^3/uL (0.0-0.2) Sodium Level 141 mmol/L (136-145) Potassium Level 3.9 mmol/L (3.5-5.1) Chloride Level 107 mmol/L (98-107) Carbon Dioxide Level 17 mmol/L (21-32) Anion Gap 17 (6-14) Blood Urea Nitrogen 47 mg/dL (7-20) Creatinine 3.3 mg/dL (0.6-1.0) Estimated GFR (Cockcroft-Gault) 13.3 Glucose Level 81 mg/dL (70-99) Calcium Level 7.9 mg/dL (8.5-10.1) Magnesium Level 1.3 mg/dL (1.8-2.4) Influenza Type A (Rapid) Negative (NEGATIVE) Influenza Type B (Rapid) Negative (NEGATIVE) Group A Streptococcus Rapid Negative (NEGATIVE) Test 08/10/17 05:43 White Blood Count 16.2 x10^3/uL (4.0-11.0) Red Blood Count 3.63 x10^6/uL (3.50-5.40) Hemoglobin 11.6 g/dL (12.0-15.5) Hematocrit 34.5 % (36.0-47.0) Mean Corpuscular Volume 95 fL (79-100) Mean Corpuscular Hemoglobin 32 pg (25-35) Mean Corpuscular Hemoglobin Concent 34 g/dL (31-37) Red Cell Distribution Width 14.3 % (11.5-14.5) Platelet Count 72 x10^3/uL (140-400) Neutrophils (%) (Auto) 86 % (31-73) Lymphocytes (%) (Auto) 5 % (24-48) Monocytes (%) (Auto) 2 % (0-9) Eosinophils (%) (Auto) 7 % (0-3) Basophils (%) (Auto) 0 % (0-3) Neutrophils # (Auto) 13.9 x10^3uL (1.8-7.7) Lymphocytes # (Auto) 0.7 x10^3/uL (1.0-4.8) Monocytes # (Auto) 0.4 x10^3/uL (0.0-1.1) Eosinophils # (Auto) 1.1 x10^3/uL (0.0-0.7) Basophils # (Auto) 0.0 x10^3/uL (0.0-0.2) Sodium Level 139 mmol/L (136-145) Potassium Level 4.2 mmol/L (3.5-5.1) Chloride Level 109 mmol/L (98-107) Carbon Dioxide Level 20 mmol/L (21-32) Anion Gap 10 (6-14) Blood Urea Nitrogen 43 mg/dL (7-20) Creatinine 1.9 mg/dL (0.6-1.0) Estimated GFR (Cockcroft-Gault) 25.1 BUN/Creatinine Ratio 23 (6-20) Glucose Level 85 mg/dL (70-99) Calcium Level 7.6 mg/dL (8.5-10.1) Magnesium Level 2.0 mg/dL (1.8-2.4) Total Bilirubin 0.5 mg/dL (0.2-1.0) Aspartate Amino Transf (AST/SGOT) 52 U/L (15-37) Alanine Aminotransferase (ALT/SGPT) 55 U/L (14-59) Alkaline Phosphatase 77 U/L (46-116) Total Protein 5.4 g/dL (6.4-8.2) Albumin 2.1 g/dL (3.4-5.0) Albumin/Globulin Ratio 0.6 (1.0-1.7) Microbiology 08/08/17 Blood Culture - Preliminary, Resulted NO GROWTH AFTER 1 DAY 08/08/17 Urine Culture - Preliminary, Resulted 08/08/17 Urine Culture Result 1 (AZUCENA) - Preliminary, Resulted Medications Current Medications Sodium Chloride 1,000 ml @ 1,000 mls/hr Q1H IV Last administered on 08/08/17at 17:50; Start 08/08/17 at 17:36; Stop 08/08/17 at 18:35; Status DC Sodium Chloride (Normal Saline Flush) 10 ml QSHIFT PRN IV AFTER MEDS AND BLOOD DRAWS; Start 08/08/17 at 17:45 Ceftriaxone Sodium 1 gm/ Sodium Chloride 50 ml @ 100 mls/hr 1X ONCE IV ; Start 08/08/17 at 18:15; Stop 08/08/17 at 18:44; Status UNV Ceftriaxone Sodium (Rocephin) 1 gm 1X ONCE IVP Last administered on 08/08/17at 18:30; Start 08/08/17 at 18:30; Stop 08/08/17 at 18:31; Status DC Ondansetron HCl (Zofran) 4 mg PRN Q4HRS PRN IV NAUSEA/VOMITING; Start 08/08/17 at 18:45; Stop 08/09/17 at 18:44; Status DC Ceftriaxone Sodium 1 gm/ Sodium Chloride 50 ml @ 100 mls/hr BID IV ; Start at 21:00; Status UNV Levofloxacin (Levaquin) 500 mg Q24H PO Last administered on 08/08/17at 22:18; Start 08/08/17 at 21:00; Stop 08/09/17 at 03:10; Status DC Sodium Chloride 1,000 ml @ 2,000 mls/hr 1X STAT IV Last administered on at 21:32; Start 08/08/17 at 18:45; Stop 08/08/17 at 19:14; Status DC Lactobacillus Rhamnosus (Culturelle) 1 cap BID PO Last administered on at 08:01; Start 08/08/17 at 21:00 Ceftriaxone Sodium (Rocephin) 1 gm BID IVP ; Start 08/09/17 at 09:00; Stop 08/09 at 09:00; Status DC Acetaminophen (Tylenol) 650 mg PRN Q6HRS PRN PO PAIN / TEMP Last administered on 08/09/17at 07:59; Start 08/08/17 at 21:15 Aspirin (Children'S Aspirin) 81 mg DAILY PO Last administered on 08/10/17 08:02 ; Start 08/09/17 at 09:00 Calcium Carbonate/ Glycine (Oscal) 500 mg DAILY PO Last administered on at 08:01; Start 08/09/17 at 09:00 Gabapentin (Neurontin) 400 mg BID PO Last administered on 08/10/17 08:02; Start 08/08/17 at 21:30 Tramadol HCl (Ultram) 50 mg PRN Q6HRS PRN PO PAIN; Start 08/08/17 at 21:15 Multivitamins/ Minerals (I-Siva) 1 tab DAILY PO Last administered on 08/10/17 08:02; Start 08/09/17 at 09:00 Pantoprazole Sodium (Protonix) 40 mg DAILYAC PO Last administered on 08/10/17 06:38; Start 08/09/17 at 07:30 Atorvastatin Calcium (Lipitor) 20 mg QHS PO Last administered on 08/09/17at 21: 49; Start 08/08/17 at 21:30 Norepinephrine Bitartrate 8 mg/ Sodium Chloride 258 ml @ 0 mls/hr CONT PRN IV SEE I/O RECORD Last administered on 08/09/17at 09:26; Start 08/09/17 at 00:15 Norepinephrine Bitartrate (Levophed) 4 mg STK-MED ONCE IV ; Start 08/09/17 at 00 :17; Stop 08/09/17 at 00:18; Status DC Sodium Chloride 1,000 ml @ 2,000 mls/hr 1X ONCE IV Last administered on at 22:40; Start 08/09/17 at 01:15; Stop 08/09/17 at 01:44; Status DC Piperacillin Sod/ Tazobactam Sod 2.25 gm/Sodium Chloride 50 ml @ 100 mls/hr Q8HRS IV Last administered on 08/10/17 05:30; Start 08/09/17 at 06:00 Linezolid 300 ml @ 300 mls/hr Q12HR IV Last administered on 08/10/17at 08:01; Start 08/09/17 at 09:00 Sodium Chloride 1,000 ml @ 1,000 mls/hr 1X ONCE IV Last administered on at 03:32; Start 08/09/17 at 03:15; Stop 08/09/17 at 04:47; Status DC Sodium Chloride 1,000 ml @ 125 mls/hr Q8H IV Last administered on 08/10/17at 03: 28; Start 08/09/17 at 03:15 Magnesium Sulfate 50 ml @ 25 mls/hr 1X ONCE IV Last administered on 08/09/17at 09:09; Start 08/09/17 at 08:15; Stop 08/09/17 at 10:14; Status DC Albuterol/ Ipratropium (Duoneb) 3 ml RTQID PRN NEB SHORTNESS OF BREATH; Start 08/10/17 at 00:30; Stop 08/10/17 at 00:36; Status DC Active Scripts Active Reported Ibuprofen 400 Mg Tablet 1 Tab PO PRN Q6HRS PRN Tylenol (Acetaminophen) 325 Mg Tablet 650 Mg PO PRN Q4-6HRS PRN Daily Multiple Vitamin (Multivitamin) 1 Each Tablet 1 Each PO Aspirin 81 Mg Tab.chew 81 Mg PO DAILY Calcium (Calcium Carbonate) 500 Mg Tablet 500 Mg PO DAILY Crestor (Rosuvastatin Calcium) 5 Mg Tablet 1 Tab PO Q2DAYS Lisinopril 10 Mg Tablet 1 Tab PO DAILY Omeprazole 20 Mg Capsule.dr 1 Cap PO DAILY Gabapentin 100 Mg Capsule 400 Mg PO BID Tramadol Hcl (Tramadol HCl) 50 Mg Tablet 50 Mg PO PRN Q6HRS PRN Vitals/I & O Vital Sign - Last 24 Hours 08/09/17 08/09/17 08/09/17 08/09/17 10:39 10:40 11:00 12:13 Temp 99.7 99.7 99.1 Pulse 96 110 Resp 18 B/P (MAP) 111/78 (89) 146/81 (102) Pulse Ox 97 93 O2 Delivery Nasal Cannula Room Air Nasal Cannula O2 Flow Rate 2.0 2.0 08/09/17 08/09/17 08/09/17 08/09/17 13:23 14:12 15:19 15:56 Temp 99.0 Pulse 106 103 102 102 Resp 18 18 18 18 B/P (MAP) 128/80 (96) 151/87 (108) 140/66 (90) 129/69 (89) Pulse Ox 97 97 95 95 O2 Delivery Nasal Cannula Nasal Cannula Nasal Cannula Nasal Cannula O2 Flow Rate 2.0 2.0 2.0 2.0 08/09/17 08/09/17 08/09/17 08/09/17 16:26 16:30 16:35 17:05 Pulse 109 102 Resp 18 18 B/P (MAP) 118/67 (84) 110/67 (81) Pulse Ox 97 95 O2 Delivery Nasal Cannula Room Air Room Air Nasal Cannula O2 Flow Rate 2.0 2.0 08/09/17 08/09/17 08/09/17 08/09/17 17:44 18:45 19:23 20:00 Temp 98.0 Pulse 95 92 90 Resp 18 24 20 B/P (MAP) 115/84 (94) 114/67 (83) 113/67 (82) Pulse Ox 95 96 96 O2 Delivery Nasal Cannula Nasal Cannula Nasal Cannula Room Air O2 Flow Rate 2.0 2.0 2.0 08/09/17 08/09/17 08/09/17 08/09/17 20:16 21:01 22:06 23:12 Pulse 98 91 95 91 Resp 22 20 24 20 B/P (MAP) 110/74 (86) 107/63 (78) 105/63 (77) 96/57 (70) Pulse Ox 97 96 98 96 O2 Delivery Nasal Cannula Nasal Cannula Nasal Cannula Nasal Cannula O2 Flow Rate 2.0 2.0 2.0 2.0 08/09/17 08/10/17 08/10/17 08/10/17 23:59 00:16 01:23 02:09 Pulse 88 92 89 Resp 18 15 18 B/P (MAP) 89/56 (67) 92/55 (67) 94/54 (67) Pulse Ox 96 97 97 O2 Delivery Room Air Nasal Cannula Nasal Cannula Nasal Cannula O2 Flow Rate 2.0 2.0 2.0 08/10/17 08/10/17 08/10/17 08/10/17 03:09 04:00 04:27 05:04 Pulse 87 88 85 Resp 22 22 23 B/P (MAP) 91/53 (66) 96/56 (69) 96/56 (69) Pulse Ox 97 96 96 O2 Delivery Nasal Cannula Room Air Nasal Cannula Nasal Cannula O2 Flow Rate 2.0 2.0 2.0 08/10/17 08/10/17 08/10/17 06:09 07:00 08:00 Temp 98.5 Pulse 83 84 Resp 14 21 B/P (MAP) 100/54 (69) 97/56 (70) Pulse Ox 95 98 O2 Delivery Nasal Cannula Nasal Cannula Room Air O2 Flow Rate 2.0 2.0 Intake and Output 08/09/17 08/09/17 08/10/17 15:00 23:00 07:00 Intake Total 2470 ml 2120 ml 100 ml Output Total 325 ml 300 ml 600 ml Balance 2145 ml 1820 ml -500 ml JARED GALINDO CLINICAL EXERCISE SPECIALIST Aug 10, 2017 10:06
[2017-08-10] MEDS: PIPERACILLIN/TAZOBACTAM 3.375 GM in IV NORMAL SALINE 50ML 50 ML IV SCH (20:32)
[2017-08-10] MEDS: ATORVASTATIN CALCIUM 20 MG TABLET PO SCH (20:38)
[2017-08-11 00:40] VITALS: BP 111/64
[2017-08-11] MEDS: PIPERACILLIN/TAZOBACTAM 3.375 GM in IV NORMAL SALINE 50ML 50 ML IV SCH ×3 (01:57→17:07)
[2017-08-11 05:45] VITALS: BP 120/69
[2017-08-11 06:58] LABS: BASO % 0 % (0-3); EOS # 0.1 x10^3/uL (0.0-0.7); EOS % 1 % (0-3); HEMOGLOBIN 11.7 g/dL (12.0-15.5); LYMPH # 0.8 x10^3/uL (1.0-4.8); LYMPH % 6 % (24-48); MEAN CORPUSCULAR HEMOGLOBIN 31 pg (25-35); MEAN CORPUSCULAR HGB CONC 33 g/dL (31-37); MEAN CORPUSCULAR VOLUME 94 fL (79-100); MONO # 0.3 x10^3/uL (0.0-1.1); MONO % 2 % (0-9); NEUT # 11.3 x10^3uL (1.8-7.7); NEUT % 90 % (31-73); PLATELET COUNT 75 x10^3/uL (140-400); RED BLOOD COUNT 3.73 x10^6/uL (3.50-5.40); RED CELL DISTRIBUTION WIDTH 14.5 % (11.5-14.5); WHITE BLOOD COUNT 12.5 x10^3/uL (4.0-11.0)
[2017-08-11 07:12] LABS: CALCIUM 7.6 mg/dL (8.5-10.1); CREATININE 1.3 mg/dL (0.6-1.0); GFR 38.8; POTASSIUM 4.2 mmol/L (3.5-5.1)
--- NOTE | 2017-08-11 07:26 | PN ---
DATE: 08/10/2017 SUBJECTIVE: The patient is resting, slightly propped up in bed, in no apparent distress. She is awake, alert. On questioning her, denied any complaint. She is off Levophed, managed to get out of the bed to the chair. Her kidney function is improving, in fact her creatinine came down from 3.3 down to 1.9, BUN came down from 47-43. When she came in, she was also acidotic with lactic acid of 6.2 and it came down to 5. Unfortunately, they have not done any lactic acid today. PHYSICAL EXAMINATION: GENERAL: When I examined her, she looked slightly pale, but no jaundice, cyanosis, or thyromegaly. No jugular venous distension. No limb edema. VITAL SIGNS: Her heart rate was 84, blood pressure was 97/56, temperature was 98.5, respiratory rate was 21 and oxygen saturation was 98% on 2 liters of oxygen. HEAD, EYES, EARS, NOSE AND THROAT: Showed normocephalic, atraumatic. NECK: Supple. HEART: Showed normal first and second heart sounds. No gallop, rub or murmur. CHEST: Clear to auscultation. No crepitation or rhonchi. ABDOMEN: Distended, soft, nontender. No guarding or rigidity. No organomegaly. All hernial orifices intact. Bowel sounds normal. NEUROLOGIC: She is awake, alert, responding appropriately. All cranial nerves intact. She moves extremities without difficulty. She ambulates without assistance or assistive devices. Her intake over the last 24 hours was 4690, output was 1225. LABORATORY DATA: Her lab work this morning showed a serum sodium 139, potassium 4.2, chloride 109, bicarbonate 20, anion gap of 10, BUN 33, creatinine 1.9, estimated GFR was 25 mL per minute. Her glucose was 85, calcium was 7.6, magnesium 2. Total bilirubin, AST, ALT, alkaline phosphatase were normal. Total protein was 5.4, albumin 2.1. White cell count was 16,200, hemoglobin 11.6, hematocrit 34.5, MCV 95 and platelet count of 72,000. Her influenza A and B were negative. Group A Streptococcus rapid test was negative. Her nasal screen for MRSA by PCR was negative. Her urine culture showed growth of more than 100,000 colony forming units per mL of gram-negative rods. The identification and sensitivity still pending. Blood cultures also showed growth of gram-negative rods in 2 sets drawn, ____. ASSESSMENT: 1. In summary, this is an 87-year-old female patient who was admitted with severe sepsis with hypotension and lactic acidosis. 2. Gram-negative bacteremia. 3. Sepsis due to urinary tract infection with growth of more than 100,000 colony forming units of gram-negative rods and dehydration. PLAN: To continue with IV antibiotic in the form of linezolid, piperacillin, tazobactam. Continue with all other medications and a probiotic. Once we have the identification of the sensitivity, we can de-escalate her antibiotic. Meanwhile, we will continue the IV fluid as her kidney function is improving. I do not have any lab work to compare with as apparently she has never been admitted to this facility before. KATIE MONDRAGON MD DR: SCOTT/sam JOB#: [id number] / [id number]
--- NOTE | 2017-08-11 08:29 | PDOC ---
JARED GALINDO TOOL SETTER 08/11/17 0829: PROGRESS NOTES Diagnosis Problem Problems Medical Problems: (1) Generalized weakness Status: Acute (2) UTI (urinary tract infection) Status: Acute Assessment Problems Medical Problems: (1) Generalized weakness Status: Acute (2) UTI (urinary tract infection) Status: Acute 1. sinus tachycardia - reactive heart rate now normalized. 2. urosepsis / septic shock - off pressors, Abx per PCP, Lactic acid now normal. 3. ARF - improved with fluids 4. hypertension - controlled 5. hyperlipidemia - continue statin 6. mild hepatic insufficiency - AST/ALT remain <3x ULN. Monitor. 7. hypomagnesemia - resolved with replacement Problems: Subjective c/o cough this morning and swelling in hands bilaterally. no chest pain, mild dyspnea, no palpitations or lightheadedness. Objective Vital Signs Date Time Temp Pulse Resp B/P (MAP) Pulse Ox O2 Delivery O2 Flow Rate FiO2 08/11/17 05:45 99.0 84 22 120/69 (86) 93 Nasal Cannula 2.0 Intake and Output 08/11/17 06:59 Intake Total 5539 ml Output Total 1625 ml Balance 3914 ml Intake Oral 1240 ml IV Total 2700 ml Other 1599 ml Output Urine Total 1625 ml Abdomen: Normal bowel sounds, Soft Heart: Regular rate, Normal S1, Normal S2 Extremities: No cyanosis, Normal pulses, Other ( peripheral edema +1) General: Alert, Oriented X3, Cooperative, No acute distress HEENT: Atraumatic, EOMI Lungs: Other (decreased bases bilaterally with occ expiratory wheeze) Neuro: Normal speech Psych/Mental Status: Mental status NL, Mood NL Review of Relevant I have reviewed the following items phil (where applicable) has been applied. Labs Laboratory Tests Test 08/10/17 05:43 08/11/17 05:46 08/11/17 05:55 White Blood Count 16.2 x10^3/uL (4.0-11.0) 12.5 x10^3/uL (4.0-11.0) Red Blood Count 3.63 x10^6/uL (3.50-5.40) 3.73 x10^6/uL (3.50-5.40) Hemoglobin 11.6 g/dL (12.0-15.5) 11.7 g/dL (12.0-15.5) Hematocrit 34.5 % (36.0-47.0) 35.0 % (36.0-47.0) Mean Corpuscular Volume 95 fL (79-100) 94 fL (79-100) Mean Corpuscular Hemoglobin 32 pg (25-35) 31 pg (25-35) Mean Corpuscular Hemoglobin Concent 34 g/dL (31-37) 33 g/dL (31-37) Red Cell Distribution Width 14.3 % (11.5-14.5) 14.5 % (11.5-14.5) Platelet Count 72 x10^3/uL (140-400) 75 x10^3/uL (140-400) Neutrophils (%) (Auto) 86 % (31-73) 90 % (31-73) Lymphocytes (%) (Auto) 5 % (24-48) 6 % (24-48) Monocytes (%) (Auto) 2 % (0-9) 2 % (0-9) Eosinophils (%) (Auto) 7 % (0-3) 1 % (0-3) Basophils (%) (Auto) 0 % (0-3) 0 % (0-3) Neutrophils # (Auto) 13.9 x10^3uL (1.8-7.7) 11.3 x10^3uL (1.8-7.7) Lymphocytes # (Auto) 0.7 x10^3/uL (1.0-4.8) 0.8 x10^3/uL (1.0-4.8) Monocytes # (Auto) 0.4 x10^3/uL (0.0-1.1) 0.3 x10^3/uL (0.0-1.1) Eosinophils # (Auto) 1.1 x10^3/uL (0.0-0.7) 0.1 x10^3/uL (0.0-0.7) Basophils # (Auto) 0.0 x10^3/uL (0.0-0.2) 0.0 x10^3/uL (0.0-0.2) Sodium Level 139 mmol/L (136-145) 138 mmol/L (136-145) Potassium Level 4.2 mmol/L (3.5-5.1) 4.2 mmol/L (3.5-5.1) Chloride Level 109 mmol/L (98-107) 109 mmol/L (98-107) Carbon Dioxide Level 20 mmol/L (21-32) 19 mmol/L (21-32) Anion Gap 10 (6-14) 10 (6-14) Blood Urea Nitrogen 43 mg/dL (7-20) 29 mg/dL (7-20) Creatinine 1.9 mg/dL (0.6-1.0) 1.3 mg/dL (0.6-1.0) Estimated GFR (Cockcroft-Gault) 25.1 38.8 BUN/Creatinine Ratio 23 (6-20) Glucose Level 85 mg/dL (70-99) 91 mg/dL (70-99) Calcium Level 7.6 mg/dL (8.5-10.1) 7.6 mg/dL (8.5-10.1) Magnesium Level 2.0 mg/dL (1.8-2.4) Total Bilirubin 0.5 mg/dL (0.2-1.0) Aspartate Amino Transf (AST/SGOT) 52 U/L (15-37) Alanine Aminotransferase (ALT/SGPT) 55 U/L (14-59) Alkaline Phosphatase 77 U/L (46-116) Total Protein 5.4 g/dL (6.4-8.2) Albumin 2.1 g/dL (3.4-5.0) Albumin/Globulin Ratio 0.6 (1.0-1.7) Lactic Acid Level 2.0 mmol/L (0.4-2.0) Microbiology 08/08/17 Blood Culture - Preliminary, Resulted NO GROWTH AFTER 2 DAYS 08/08/17 Urine Culture - Final, Complete 08/08/17 Urine Culture Result 1 (AZUCENA) - Final, Complete 08/08/17 Antimicrobic Susceptibility - Final, Complete Medications Current Medications Sodium Chloride 1,000 ml @ 1,000 mls/hr Q1H IV Last administered on 08/08/17at 17:50; Start 08/08/17 at 17:36; Stop 08/08/17 at 18:35; Status DC Sodium Chloride (Normal Saline Flush) 10 ml QSHIFT PRN IV AFTER MEDS AND BLOOD DRAWS; Start 08/08/17 at 17:45; Stop 08/10/17 at 21:50; Status DC Ceftriaxone Sodium 1 gm/ Sodium Chloride 50 ml @ 100 mls/hr 1X ONCE IV ; Start 08/08/17 at 18:15; Stop 08/08/17 at 18:44; Status UNV Ceftriaxone Sodium (Rocephin) 1 gm 1X ONCE IVP Last administered on 08/08/17at 18:30; Start 08/08/17 at 18:30; Stop 08/08/17 at 18:31; Status DC Ondansetron HCl (Zofran) 4 mg PRN Q4HRS PRN IV NAUSEA/VOMITING; Start 08/08/17 at 18:45; Stop 08/09/17 at 18:44; Status DC Ceftriaxone Sodium 1 gm/ Sodium Chloride 50 ml @ 100 mls/hr BID IV ; Start at 21:00; Status UNV Levofloxacin (Levaquin) 500 mg Q24H PO Last administered on 08/08/17at 22:18; Start 08/08/17 at 21:00; Stop 08/09/17 at 03:10; Status DC Sodium Chloride 1,000 ml @ 2,000 mls/hr 1X STAT IV Last administered on at 21:32; Start 08/08/17 at 18:45; Stop 08/08/17 at 19:14; Status DC Lactobacillus Rhamnosus (Culturelle) 1 cap BID PO Last administered on at 20:38; Start 08/08/17 at 21:00 Ceftriaxone Sodium (Rocephin) 1 gm BID IVP ; Start 08/09/17 at 09:00; Stop 08/09 at 09:00; Status DC Acetaminophen (Tylenol) 650 mg PRN Q6HRS PRN PO PAIN / TEMP Last administered on 08/09/17at 07:59; Start 08/08/17 at 21:15 Aspirin (Children'S Aspirin) 81 mg DAILY PO Last administered on 08/10/17at 08:02 ; Start 08/09/17 at 09:00 Calcium Carbonate/ Glycine (Oscal) 500 mg DAILY PO Last administered on at 08:01; Start 08/09/17 at 09:00 Gabapentin (Neurontin) 400 mg BID PO Last administered on 08/10/17at 20:38; Start 08/08/17 at 21:30 Tramadol HCl (Ultram) 50 mg PRN Q6HRS PRN PO PAIN; Start 08/08/17 at 21:15 Multivitamins/ Minerals (I-Siva) 1 tab DAILY PO Last administered on 08/10/17at 08:02; Start 08/09/17 at 09:00 Pantoprazole Sodium (Protonix) 40 mg DAILYAC PO Last administered on 08/10/17at 06:38; Start 08/09/17 at 07:30 Atorvastatin Calcium (Lipitor) 20 mg QHS PO Last administered on 08/10/17at 20:38 ; Start 08/08/17 at 21:30 Norepinephrine Bitartrate 8 mg/ Sodium Chloride 258 ml @ 0 mls/hr CONT PRN IV SEE I/O RECORD Last administered on 08/09/17at 09:26; Start 08/09/17 at 00:15; Stop 08/10/17 at 21:50; Status DC Norepinephrine Bitartrate (Levophed) 4 mg STK-MED ONCE IV ; Start 08/09/17 at 00 :17; Stop 08/09/17 at 00:18; Status DC Sodium Chloride 1,000 ml @ 2,000 mls/hr 1X ONCE IV Last administered on at 22:40; Start 08/09/17 at 01:15; Stop 08/09/17 at 01:44; Status DC Piperacillin Sod/ Tazobactam Sod 2.25 gm/Sodium Chloride 50 ml @ 100 mls/hr Q8HRS IV Last administered on 08/10/17at 05:30; Start 08/09/17 at 06:00; Stop 08/10/17 at 18:03; Status DC Linezolid 300 ml @ 300 mls/hr Q12HR IV Last administered on 08/10/17at 20:33; Start 08/09/17 at 09:00 Sodium Chloride 1,000 ml @ 1,000 mls/hr 1X ONCE IV Last administered on at 03:32; Start 08/09/17 at 03:15; Stop 08/09/17 at 04:47; Status DC Sodium Chloride 1,000 ml @ 125 mls/hr Q8H IV Last administered on 08/10/17at 21: 59; Start 08/09/17 at 03:15 Magnesium Sulfate 50 ml @ 25 mls/hr 1X ONCE IV Last administered on 08/09/17at 09:09; Start 08/09/17 at 08:15; Stop 08/09/17 at 10:14; Status DC Albuterol/ Ipratropium (Duoneb) 3 ml RTQID PRN NEB SHORTNESS OF BREATH; Start 08/10/17 at 00:30; Stop 08/10/17 at 00:36; Status DC Piperacillin Sod/ Tazobactam Sod 3.375 gm/Sodium Chloride 50 ml @ 100 mls/hr Q8H IV Last administered on 08/11/17at 01:57; Start 08/10/17 at 18:00 Active Scripts Active Reported Ibuprofen 400 Mg Tablet 1 Tab PO PRN Q6HRS PRN Tylenol (Acetaminophen) 325 Mg Tablet 650 Mg PO PRN Q4-6HRS PRN Daily Multiple Vitamin (Multivitamin) 1 Each Tablet 1 Each PO Aspirin 81 Mg Tab.chew 81 Mg PO DAILY Calcium (Calcium Carbonate) 500 Mg Tablet 500 Mg PO DAILY Crestor (Rosuvastatin Calcium) 5 Mg Tablet 1 Tab PO Q2DAYS Lisinopril 10 Mg Tablet 1 Tab PO DAILY Omeprazole 20 Mg Capsule.dr 1 Cap PO DAILY Gabapentin 100 Mg Capsule 400 Mg PO BID Tramadol Hcl (Tramadol HCl) 50 Mg Tablet 50 Mg PO PRN Q6HRS PRN Vitals/I & O Vital Sign - Last 24 Hours 08/10/17 08/10/17 08/10/17 08/10/17 09:00 10:00 11:00 11:23 Temp 97.7 Pulse 88 93 94 Resp 18 18 20 B/P (MAP) 84/50 (61) 85/52 (63) 80/48 (59) Pulse Ox 95 95 93 O2 Delivery Nasal Cannula Nasal Cannula Nasal Cannula O2 Flow Rate 2.0 2.0 2.0 08/10/17 08/10/17 08/10/17 08/10/17 12:00 12:00 13:00 14:00 Pulse 80 80 78 Resp 20 16 18 B/P (MAP) 103/63 (76) 100/60 (73) 95/60 (72) Pulse Ox 94 94 95 O2 Delivery Nasal Cannula Room Air Nasal Cannula Nasal Cannula O2 Flow Rate 2.0 2.0 2.0 3/108/10/17 08/10/17 08/10/17 15:00 16:00 16:00 17:00 Pulse 82 78 82 Resp 20 20 18 B/P (MAP) 102/66 (78) 111/61 (78) 134/71 (92) Pulse Ox 93 95 97 O2 Delivery Nasal Cannula Nasal Cannula Room Air Nasal Cannula O2 Flow Rate 2.0 2.0 2.0 08/10/17 08/10/17 08/10/17 08/10/17 18:00 19:00 20:00 20:00 Temp 98.4 Pulse 84 90 91 Resp 22 20 20 B/P (MAP) 105/63 (77) 115/65 (82) 127/74 (91) Pulse Ox 94 96 96 O2 Delivery Nasal Cannula Nasal Cannula Nasal Cannula Room Air O2 Flow Rate 2.0 2.0 2.0 08/11/17 08/11/17 00:40 05:45 Temp 99.0 Pulse 90 84 Resp 16 22 B/P (MAP) 111/64 (80) 120/69 (86) Pulse Ox 96 93 O2 Delivery Nasal Cannula Nasal Cannula O2 Flow Rate 2.0 2.0 Intake and Output 08/10/17 08/10/17 08/11/17 14:59 22:59 06:59 Intake Total 1050 ml 4249 ml 240 ml Output Total 125 ml 750 ml 750 ml Balance 925 ml 3499 ml -510 ml ROWAN MARQUEZ MD 08/11/171948: PROGRESS NOTES Objective Patient seen and examined The patient is feeling better. No pain at this time. Urosepsis. Improving. Off pressors. Continue antibiotics as per the primary service. Reactive sinus tachycardia. Resolved. Hypertension. Stable at this time. Statins for hyperlipidemia. JARED GALINDO APRN Aug 11, 2017 08:29 ROWAN MARQUEZ MD Aug 11, 2017 19:49
[2017-08-11] MEDS: CALCIUM CARBONATE 500 MG TABLET PO SCH (08:43)
[2017-08-11] MEDS: ASPIRIN 81 MG TAB.CHEW PO SCH (08:43)
[2017-08-11] MEDS: LACTOBACILLUS RHAMNOSUS GG 1 CAPSULE. PO SCH ×2 (08:43→20:52)
[2017-08-11] MEDS: PANTOPRAZOLE 40 MG TABLET. PO SCH (08:43)
[2017-08-11] MEDS: GABAPENTIN 400 MG CAPSULE. PO SCH ×2 (08:43→20:52)
[2017-08-11] MEDS: MULTIVITAMIN I-VITE TABLET. PO SCH (08:43)
[2017-08-11 09:29] VITALS: BP 124/76
--- NOTE | 2017-08-11 10:17 | RAD ---
Portable chest, 08/11/2017: History: Dyspnea Comparison is made to a study from 04/28/2014. The heart size and pulmonary vascularity are normal. There is calcific plaquing and tortuosity of the thoracic aorta. Mild streaky atelectasis/infiltrate has developed in the left base. There is mild linear atelectasis in the right base. There is no evidence of pleural fluid. Periarticular calcifications are noted at the left shoulder. IMPRESSION: 1. Mild streaky left basilar atelectasis/infiltrate. 2. Mild right basilar linear atelectasis.
[2017-08-11] MEDS: IPRATRPIUM/ALBUTEROL 0.5/2.5MG 3 ML NEBU. NEB SCH ×3 (12:00→20:54)
[2017-08-11 12:40] VITALS: BP 136/88
[2017-08-11 17:23] VITALS: BP 137/73
[2017-08-11 19:11] VITALS: BP 145/74
[2017-08-11] MEDS: ATORVASTATIN CALCIUM 20 MG TABLET PO SCH (20:52)
--- NOTE | 2017-08-11 21:36 | PN ---
DATE: 08/11/2017 SUBJECTIVE: The patient is resting comfortably in her chair in no apparent distress. Apparently, she has an episode of marked shortness of breath, wheezing this morning and her IV fluids were discontinued. She has had a chest x-ray, which basically showed that the heart size and pulmonary vascularity are normal. There is calcific plaquing and tortuosity of the thoracic aorta, mild streaky atelectasis/infiltrate has developed in the left base with mild linear atelectasis in the right base. There is no evidence of pleural fluid. Periarticular calcification are noted at the left shoulder. PHYSICAL EXAMINATION: GENERAL: When I saw her this afternoon, she looked well and was clearly in no apparent respiratory distress, pale, but no jaundice, cyanosis or thyromegaly. No jugular venous distension noted. No lower limb edema. VITAL SIGNS: Her heart rate was 84, blood pressure 124/76, temperature was 99, respiratory rate was 20 and oxygen saturation was 95% on 2 liters of oxygen. HEAD, EYES, EARS, NOSE AND THROAT: Showed normocephalic, atraumatic. NECK: Supple. HEART: Showed normal first and second heart sounds with no gallop, rub or murmur. CHEST: Clear to auscultation. No crepitation or rhonchi. ABDOMEN: Distended, soft, nontender. NEUROLOGIC: She is awake, alert, responding appropriately. All cranial nerves are intact. She moves extremities without difficulty. She is mostly bedbound and chair bound. Her intake was 5500, output was 1625. LABORATORY DATA: As of this morning showed a white cell count 12,500, hemoglobin 12, hematocrit 35, MCV 94 and platelet count of 75,000. Her serum sodium was 138, potassium 4.2, chloride 109, bicarbonate 19, anion gap of 10, BUN 29, creatinine 1.3, estimated GFR was 39 mL per minute. Her glucose was 91 and lactic acid was 2 and calcium was 7.6. Her urine culture showed growth of more than 100,000 colony forming units per mL of Escherichia coli susceptible to almost all antibiotics including piperacillin. She grew the same thing in her blood culture, gram-negative rods, although the identification and sensitivity still pending at the time of this dictation. ASSESSMENT: 1. In summary, this is an 87-year-old female patient who was admitted with septic shock due to urinary tract infection. She has also bacteremia. She is now off pressors, continued to be on IV antibiotic. Her lactic acid came down from 60-22, acute renal failure, improving. Her creatinine came down from 3.3-1.3. Her serum creatinine on 08/10/2016 was 0.8 mg/dL 2. Hypertension, well controlled. 3. Hyperlipidemia, on statins. 4. Hypomagnesemia, resolved. 5. Thrombocytopenia with a platelet count dropping down from 114 down to 75,000. PLAN: My plan is to discontinue Zyvox, continue with Zosyn. We will repeat all her lab works tomorrow, and if she remains stable, we can discharge her to [facility] for rehabilitation. KATIE MONDRAGON MD DR: SCOTT/sam JOB#: [id number] / [id number]
[2017-08-12] MEDS: PIPERACILLIN/TAZOBACTAM 3.375 GM in IV NORMAL SALINE 50ML 50 ML IV SCH ×2 (04:12→10:22)
[2017-08-12] MEDS: IPRATRPIUM/ALBUTEROL 0.5/2.5MG 3 ML NEBU. NEB SCH ×4 (05:19→20:49)
[2017-08-12 05:32] VITALS: BP 174/85
[2017-08-12 06:13] LABS: ALBUMIN/GLOBULIN RATIO 0.6 (1.0-1.7); CALCIUM 8.1 mg/dL (8.5-10.1); CREATININE 1.1 mg/dL (0.6-1.0); GFR 47.1; POTASSIUM 4.2 mmol/L (3.5-5.1); TOTAL BILIRUBIN 0.5 mg/dL (0.2-1.0); TOTAL PROTEIN 5.6 g/dL (6.4-8.2)
[2017-08-12 06:23] LABS: HEMOGLOBIN 12.3 g/dL (12.0-15.5); RED BLOOD COUNT 3.86 x10^6/uL (3.50-5.40); RED CELL DISTRIBUTION WIDTH 14.4 % (11.5-14.5); WHITE BLOOD COUNT 8.4 x10^3/uL (4.0-11.0)
[2017-08-12] MEDS: PANTOPRAZOLE 40 MG TABLET. PO SCH (07:32)
[2017-08-12] MEDS: LACTOBACILLUS RHAMNOSUS GG 1 CAPSULE. PO SCH ×2 (08:49→21:01)
[2017-08-12] MEDS: MULTIVITAMIN I-VITE TABLET. PO SCH (08:49)
[2017-08-12] MEDS: CALCIUM CARBONATE 500 MG TABLET PO SCH (08:49)
[2017-08-12] MEDS: GABAPENTIN 400 MG CAPSULE. PO SCH ×2 (08:49→21:01)
[2017-08-12] MEDS: ASPIRIN 81 MG TAB.CHEW PO SCH (08:49)
[2017-08-12 09:48] VITALS: BP 174/85
[2017-08-12 14:15] VITALS: BP 157/80
[2017-08-12] MEDS ORDERED: LISINOPRIL 10 MG TABLET PO ONE (16:30)
[2017-08-12 16:37] VITALS: BP 122/79
--- NOTE | 2017-08-12 19:19 | PN ---
DATE: 08/12/2017 SUBJECTIVE: The patient is resting comfortably in her chair, in no apparent distress. She denied any complaint, in particular any chest pain or shortness of breath. OBJECTIVE: GENERAL: When I examined her, she looked well and was clearly in no apparent respiratory distress, slightly pale, but no jaundice, cyanosis, lymphadenopathy or thyromegaly. No jugular venous distension. No limb edema. VITAL SIGNS: Her heart rate was 93, blood pressure was 174/85, temperature was 98.7, respiratory rate was 20, and her oxygen saturation was 95% on 2 liters of oxygen. HEAD, EYES, EARS, NOSE AND THROAT: Showed normocephalic, atraumatic. NECK: Supple. HEART: Showed normal first and second heart sounds with no gallop, rub or murmur. CHEST: Clear to auscultation. No crepitation or rhonchi. ABDOMEN: Distended, soft, nontender. NEUROLOGIC: She is awake, alert, responding appropriately. Cranial nerves intact. She moves her extremities without difficulty. Her intake over the last 24 hours was 1700, output was 1550. LABORATORY DATA: Shows white cell count of 8400, hemoglobin 12.3, hematocrit 36, MCV 93, and platelet count of 70,000. Her chemistry showed a serum sodium 139, potassium 4.2, chloride 110, bicarbonate 18, anion gap of 11, BUN 22, creatinine 1.1, estimated GFR was 47 mL per minute. Her glucose was 100, calcium was 8.1. Total bilirubin, AST, ALT normal. Alkaline phosphatase slightly elevated. Her total protein was 5.6, albumin 2. Her urine culture showed growth of Serratia, more than 100,000 colony forming units per mL of Escherichia coli sensitive to all antibiotics. Her blood culture also showed growth of Escherichia coli, sensitive to all the same antibiotics. ASSESSMENT: 1. Septic shock, urinary tract infection as well as E. coli bacteremia. She is now off pressors. Her lactic acid has normalized. Her white cell count is down and kidney function has normalized. 2. Acute kidney injury, resolved. Her creatinine came down from 3.3-1.1. Her serum creatinine on 08/10/2016 was 0.8 mg/dL. 3. Hypertension, slightly suboptimally controlled. 4. Hyperlipidemia, on statin. 4. Hypomagnesemia, resolved. Thrombocytopenia with platelet count dropping down from 114-70,000. PLAN: My plan is to discontinue Zyvox and I did discontinue Zosyn. Discontinue Gilman catheter. Continue with physical and occupational therapy and I will start her on Vantin and given that the platelet continued to fall further, I will probably keep her over the weekend to make sure the platelet bounces back and start her on Vantin 200 mg twice a day. KATIE MONDRAGON MD DR: SCOTT/sam JOB#: [id number] / [id number]
[2017-08-12] MEDS: ATORVASTATIN CALCIUM 20 MG TABLET PO SCH (21:01)
[2017-08-12] MEDS: CEFPODOXIME PROXETIL 100 MG TABLET PO SCH (21:02)
[2017-08-12] MEDS: ACETAMINOPHEN 325 MG TABLET PO PRN (21:02)
[2017-08-12 23:08] VITALS: BP 139/61
[2017-08-13] MEDS: IPRATRPIUM/ALBUTEROL 0.5/2.5MG 3 ML NEBU. NEB SCH ×4 (05:06→21:29)
[2017-08-13 05:25] VITALS: BP 150/80
[2017-08-13 07:47] LABS: CALCIUM 8.3 mg/dL (8.5-10.1); CREATININE 0.9 mg/dL (0.6-1.0); GFR 59.4; MAGNESIUM 1.6 mg/dL (1.8-2.4); POTASSIUM 3.7 mmol/L (3.5-5.1)
[2017-08-13 07:49] LABS: HEMATOCRIT 34.5 % (36.0-47.0); HEMOGLOBIN 11.8 g/dL (12.0-15.5); RED BLOOD COUNT 3.72 x10^6/uL (3.50-5.40); RED CELL DISTRIBUTION WIDTH 14.1 % (11.5-14.5); WHITE BLOOD COUNT 8.2 x10^3/uL (4.0-11.0)
[2017-08-13] MEDS: CALCIUM CARBONATE 500 MG TABLET PO SCH (08:08)
[2017-08-13] MEDS: CEFPODOXIME PROXETIL 100 MG TABLET PO SCH ×2 (08:08→20:48)
[2017-08-13] MEDS: ASPIRIN 81 MG TAB.CHEW PO SCH (08:09)
[2017-08-13] MEDS: GABAPENTIN 400 MG CAPSULE. PO SCH ×2 (08:09→20:48)
[2017-08-13] MEDS: MULTIVITAMIN I-VITE TABLET. PO SCH (08:09)
[2017-08-13] MEDS: LISINOPRIL 10 MG TABLET PO SCH (08:09)
[2017-08-13] MEDS: LACTOBACILLUS RHAMNOSUS GG 1 CAPSULE. PO SCH ×2 (08:09→20:48)
[2017-08-13] MEDS: PANTOPRAZOLE 40 MG TABLET. PO SCH (08:09)
[2017-08-13 11:20] VITALS: BP 130/82
[2017-08-13 14:34] VITALS: BP 157/86
--- NOTE | 2017-08-13 18:13 | PN ---
DATE: 08/13/2017 SUBJECTIVE: The patient is resting slightly propped up, awake, alert, no apparent distress. On questioning her, denied any complaint. She managed to get out of the bed to bedside commode and walk in her room without difficulty. Continued to have swelling of her legs and left upper extremity, although the swelling is much improved. Her platelets are going up and today they are up to 81,000. Her kidney function improved further and her creatinine is down to 0.6 and BUN is 16. OBJECTIVE: GENERAL: When I examined her, she looked well and was clearly in no apparent respiratory distress, slightly pale, but no jaundice, cyanosis, or thyromegaly. No jugular venous distension. No limb edema. VITAL SIGNS: Her heart rate was 69, blood pressure was 157/85, temperature was 98.6, respiratory rate was 20, and oxygen saturation was 96%. HEAD, EYES, EARS, NOSE AND THROAT: Normocephalic, atraumatic. NECK: Supple. HEART: Showed normal first and second heart sounds. No gallop, rub or murmur. CHEST: Clear to auscultation. No crepitation or rhonchi. ABDOMEN: Distended, soft, nontender. No guarding or rigidity. No organomegaly. Hernial orifice intact. Bowel sounds normal. NEUROLOGIC: She was awake, alert, responding appropriately. Cranial nerves intact. She moves extremities without difficulty. She ambulates with a walker without any assistance. Her intake over the last 24 hours was 1890, output was 900. LABORATORY DATA: Showed a white cell count of 8200, hemoglobin 11.8, hematocrit 34.5, MCV 93, and platelet count of 81,000. Her chemistry showed a serum sodium 142, potassium 3.7, chloride 110, bicarbonate 21, anion gap of 11, BUN 16, creatinine 0.9, estimated GFR was 59 mL per minute. Her glucose was 101, calcium was 8.3, magnesium was 1.6. Her total bilirubin, AST, ALT were normal. Alkaline phosphatase slightly elevated. Her total protein 5.6, albumin 2. ASSESSMENT: 1. Septic shock with urinary tract infection as well as with a growth of E. coli in her urine and blood. She is now on Vantin 200 mg twice a day. 2. Lactic acidosis, resolved. 3. Acute kidney injury, resolved. Her creatinine came down from 3.3 to 0.9. Her serum creatinine on 08/10/2016 was 0.8 mg/dL 4. Hypertension, well controlled. 5. Hyperlipidemia, on statin, hypomagnesemia within normal range. 6. Thrombocytopenia, improving. Today, the platelet count has risen to 81,000. PLAN: Continue with oral Vantin. Continue with physical and occupational therapy. She will be discharged tomorrow to [facility] for rehabilitation. KATIE MONDRAGON MD DR: SCOTT/sam JOB#: [id number] / [id number]
[2017-08-13 19:39] VITALS: BP 165/94
[2017-08-13] MEDS: ATORVASTATIN CALCIUM 20 MG TABLET PO SCH (20:48)
[2017-08-13 23:35] VITALS: BP 124/79
[2017-08-14 04:59] VITALS: BP 174/88
[2017-08-14] MEDS: IPRATRPIUM/ALBUTEROL 0.5/2.5MG 3 ML NEBU. NEB SCH ×4 (05:02→21:17)
[2017-08-14] MEDS: ASPIRIN 81 MG TAB.CHEW PO SCH (07:47)
[2017-08-14] MEDS: LACTOBACILLUS RHAMNOSUS GG 1 CAPSULE. PO SCH ×2 (07:47→21:24)
[2017-08-14] MEDS: PANTOPRAZOLE 40 MG TABLET. PO SCH (07:48)
[2017-08-14] MEDS: LISINOPRIL 10 MG TABLET PO SCH (07:48)
[2017-08-14] MEDS: CEFPODOXIME PROXETIL 100 MG TABLET PO SCH ×2 (07:50→21:24)
[2017-08-14] MEDS: GABAPENTIN 400 MG CAPSULE. PO SCH ×2 (07:50→21:24)
[2017-08-14] MEDS: CALCIUM CARBONATE 500 MG TABLET PO SCH (07:50)
[2017-08-14] MEDS: MULTIVITAMIN I-VITE TABLET. PO SCH (07:50)
[2017-08-14] MEDS ORDERED: HYDROcodone/APAP 5/325MG 1 TAB TABLET PO ONE (10:30)
[2017-08-14 10:44] VITALS: BP 157/89
[2017-08-14] MEDS ORDERED: methylPREDNISolone SOD SUCC PF 40 MG/ML VIAL. IV ONE (12:30)
[2017-08-14] MEDS: MAGNESIUM OXIDE 400 MG TABLET PO SCH (12:40)
--- NOTE | 2017-08-14 13:46 | RAD ---
Three-view study of the left hand Clinical indications: 3 view left hand study Indications: Left hand pain and swelling. Findings: No acute fracture or dislocation or osteolytic process is seen. 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 There is moderate primary degenerative osteoarthritis of the scaphoid trapezium joint and the PIP joints and the first metacarpal phalangeal joint. IMPRESSION: Primary degenerative osteoarthritis
[2017-08-14 14:46] VITALS: BP 162/98
[2017-08-14] MEDS: HYDROcodone/APAP 5/325MG 1 TAB TABLET PO PRN ×2 (17:59→21:26)
[2017-08-14 19:57] VITALS: BP 76/59
[2017-08-14] MEDS: ATORVASTATIN CALCIUM 20 MG TABLET PO SCH (21:24)
[2017-08-14 23:00] VITALS: BP 137/82
--- NOTE | 2017-08-15 02:22 | PN ---
DATE: 08/14/2017 CURRENT ONGOING PROBLEMS: 1. Septic shock with gram-negative urinary tract infection, now on p.o. antibiotics. 2. Gram-negative bacteremia. 3. Lactic acidosis, resolved. 4. Acute kidney injury, also resolved. 5. Hypertension. 6. Hyperlipidemia. 7. Thrombocytopenia, improving. 8. New problem of left hand swelling. SUBJECTIVE: The patient really was set to be discharged today; however, had acute hand swelling with pain on the left hand. Sedimentation rate is 89. The patient would not be able to start with a walker and worried that she may be having an acute flare of something like polymyalgia rheumatica. She is in quite a bit of pain, which was relieved somewhat with hydrocodone and elevation and ice. She will get some low dose of steroids today as well. Visited with her daughter also. OBJECTIVE: VITAL SIGNS: Blood pressure 157/89, pulse 96, temperature 98.3, respiratory rate is 20, pulse ox 93-96% on room air. GENERAL: Color is actually good, but she is slightly pale. HEENT: Tongue was moist. NECK: Supple. LUNGS: Good air movement. Clear. CARDIOVASCULAR: Regular rhythm and rate. ABDOMEN: Soft, nontender. EXTREMITIES: With some positive ankle edema. Left hand reveals a primary degenerative arthritis of the scaphoid-trapezium joint and the PIP joints with swelling. ASSESSMENT: As above. PLAN: Try low-dose steroid, pain medication and plan for discharge tomorrow. CONSUELO HUGHES DO DR: JESSI/sam JOB#: [id number] / [id number]
[2017-08-15] MEDS: IPRATRPIUM/ALBUTEROL 0.5/2.5MG 3 ML NEBU. NEB SCH ×2 (05:47→10:10)
[2017-08-15 06:11] VITALS: BP 154/94
[2017-08-15 06:22] LABS: BASO % 0 % (0-3); EOS % 0 % (0-3); HEMOGLOBIN 11.8 g/dL (12.0-15.5); LYMPH # 1.1 x10^3/uL (1.0-4.8); LYMPH % 10 % (24-48); MEAN CORPUSCULAR HEMOGLOBIN 31 pg (25-35); MEAN CORPUSCULAR HGB CONC 34 g/dL (31-37); MEAN CORPUSCULAR VOLUME 93 fL (79-100); MONO # 0.8 x10^3/uL (0.0-1.1); MONO % 7 % (0-9); NEUT # 8.8 x10^3uL (1.8-7.7); NEUT % 82 % (31-73); PLATELET COUNT 139 x10^3/uL (140-400); RED BLOOD COUNT 3.75 x10^6/uL (3.50-5.40); RED CELL DISTRIBUTION WIDTH 13.9 % (11.5-14.5); WHITE BLOOD COUNT 10.7 x10^3/uL (4.0-11.0)
[2017-08-15 06:37] LABS: ALBUMIN 2.1 g/dL (3.4-5.0); ALBUMIN/GLOBULIN RATIO 0.5 (1.0-1.7); CALCIUM 8.6 mg/dL (8.5-10.1); CREATININE 0.8 mg/dL (0.6-1.0); MAGNESIUM 1.6 mg/dL (1.8-2.4); POTASSIUM 4.1 mmol/L (3.5-5.1); TOTAL BILIRUBIN 0.4 mg/dL (0.2-1.0)
[2017-08-15] MEDS ORDERED: predniSONE 20 MG TABLET PO ONE (08:00)
[2017-08-15] MEDS: PANTOPRAZOLE 40 MG TABLET. PO SCH (08:17)
[2017-08-15] MEDS: ASPIRIN 81 MG TAB.CHEW PO SCH (08:17)
[2017-08-15] MEDS: MULTIVITAMIN I-VITE TABLET. PO SCH (08:18)
[2017-08-15] MEDS: LACTOBACILLUS RHAMNOSUS GG 1 CAPSULE. PO SCH (08:18)
[2017-08-15] MEDS: MAGNESIUM OXIDE 400 MG TABLET PO SCH (08:18)
[2017-08-15] MEDS: GABAPENTIN 400 MG CAPSULE. PO SCH (08:19)
[2017-08-15] MEDS: CALCIUM CARBONATE 500 MG TABLET PO SCH (08:19)
[2017-08-15] MEDS: LISINOPRIL 10 MG TABLET PO SCH (08:20)
[2017-08-15] MEDS: CEFPODOXIME PROXETIL 100 MG TABLET PO SCH (08:20)
[2017-08-15 11:00] VITALS: BP 119/64
[2017-08-15 13:28] VITALS: BP 135/79
--- NOTE | 2017-08-15 15:48 | DS ---
DATE OF DISCHARGE: 08/15/2017 TENTATIVE DISCHARGE DATE: 08/15/2017 CAUSE OF DISCHARGE: Awaiting placement in snf facility. DISCHARGE DIAGNOSES: 1. Septic shock with Gram-negative urinary tract infection. 2. Gram-negative bacteremia. 3. Lactic acidosis. 4. Acute kidney injury, resolved. 5. Hypertension. 6. Hyperlipidemia. 7. Thrombocytopenia. 8. Flare of left hand osteoarthritis, improved with steroids. 9. Impaired mobility. 10. Fall risk. 11. Severe protein-calorie malnutrition. 12. Hypomagnesemia. HOSPITAL COURSE: An 87-year-old female who was initially admitted in septic shock with fever. She was in the ____ snf facility. She received IV antibiotics and breathing treatments. She slowly got better and was moved out to the floor. She developed some acute hand swelling 2 days before discharge and had a sed rate of 89. This may be in a flare of arthritis, it is not diagnosed, but the dose of Solu-Medrol really improved her left hand swelling and she will be sent home on a short course of prednisone. OBJECTIVE: VITAL SIGNS: Blood pressure 119/64, pulse 94, respirations 18, temperature 97.6, pulse ox 94% on room air. Physical exam is improved. GENERAL: Color is improved EXTREMITIES: Hand is remarkably less swelling and an increase in range of motion. LUNGS: Clear. CARDIOVASCULAR: Regular rhythm and rate. PLAN: Discharged to snf facility in [place] when bed available. CONSUELO HUGHES DO DR: JESSI/sam JOB#: [id number] / [id number]
== END 2017-08-15 15:35 | disposition home or self-care (01) | DRG 871 ==
LOC: ER 17:05 → ICU 18:30 → 1 SOUTH 08-12 19:30
PROVIDERS: ADMIT Internal Medicine; ATTEND Internal Medicine
DX: A41.51 Sepsis due to Escherichia coli [E. coli] (principal); R65.21 Severe sepsis with septic shock; E43 Unspecified severe protein-calorie malnutrition; N17.9 Acute kidney failure, unspecified; D69.6 Thrombocytopenia, unspecified; E11.22 Type 2 diabetes mellitus with diabetic chronic kidney disease; I48.0 Paroxysmal atrial fibrillation; E86.0 Dehydration; E83.42 Hypomagnesemia; N39.0 Urinary tract infection, site not specified; J98.11 Atelectasis; K72.90 Hepatic failure, unspecified without coma; E78.00 Pure hypercholesterolemia, unspecified; N18.9 Chronic kidney disease, unspecified; I12.9 Hypertensive chronic kidney disease with stage 1 through stage 4 chronic kidney disease, or unspecified chronic kidney disease; E78.5 Hyperlipidemia, unspecified; I70.0 Atherosclerosis of aorta; M19.042 Primary osteoarthritis, left hand; R26.9 Unspecified abnormalities of gait and mobility; Z91.81 History of falling; Z87.442 Personal history of urinary calculi; Z87.891 Personal history of nicotine dependence; Z90.49 Acquired absence of other specified parts of digestive tract; Z68.36 Body mass index [BMI] 36.0-36.9, adult
CPT/HCPCS: 36415; 71045; 73130; 76770; 80048; 80053; 81001; 83605; 83735; 84484; 85007; 85025; 85027; 85651; 87040; 87070; 87086; 87186; 87205; 87641; 87804; 87880; 93005; 93306; 94640; 96361; 96374; G0238; J0696; J2020; J2543; J2920; J3475; J7050; J7512; J7620; 97110; 97116; 97530; 97535; 99285-25; J7030

== ENCOUNTER 2017-08-16 08:44 | Emergency (ER) | payer MEDICARE ==
[~2017-08-16] VITALS: Ht 309.9 cm; Wt 91.6 kg
[~2017-08-16 08:44] MED LIST changes: +ACET325T9 PO; +ASPI-630 PO; +CALC500T30 PO; +CRESTOR5 MG PO; +IBUP400T18 PO; +LISI10TA2 PO; +MULT1TAB97 PO; +OMEP20CA9 PO; +TRAM50TA PO
[2017-08-16] MEDS ORDERED: OXYMETAZOLINE 0.05% NASAL SPRAY 15ML BOTTLE. NS ONE (09:00)
[2017-08-16] MEDS ORDERED: LIDOCAINE 2% JELLY 10ML IN APPLICATOR. MM ONE (09:00)
[2017-08-16 09:50] LABS: BASO # 0.1 x10^3/uL (0.0-0.2); BASO % 1 % (0-3); EOS # 0.1 x10^3/uL (0.0-0.7); EOS % 0 % (0-3); HEMATOCRIT 37.9 % (36.0-47.0); HEMOGLOBIN 12.7 g/dL (12.0-15.5); LYMPH # 1.8 x10^3/uL (1.0-4.8); LYMPH % 15 % (24-48); MEAN CORPUSCULAR HEMOGLOBIN 31 pg (25-35); MEAN CORPUSCULAR HGB CONC 34 g/dL (31-37); MEAN CORPUSCULAR VOLUME 94 fL (79-100); MONO # 0.9 x10^3/uL (0.0-1.1); MONO % 8 % (0-9); NEUT % 77 % (31-73); PLATELET COUNT 244 x10^3/uL (140-400); RED BLOOD COUNT 4.03 x10^6/uL (3.50-5.40); RED CELL DISTRIBUTION WIDTH 14.3 % (11.5-14.5); WHITE BLOOD COUNT 11.8 x10^3/uL (4.0-11.0)
--- NOTE | 2017-08-16 09:51 | PHYS DOC ---
Past History Past Medical History: GERD, Hypertension, Other Past Surgical History: Hip Replacement, Knee Replacement, Other Alcohol Use: None Drug Use: None Adult General Chief Complaint Chief Complaint: NOSEBLEED HPI HPI Patient is a 87 year old female who [facility] the complaint of nosebleed this morning. Patient states it has stopped and started a couple of times but has been pretty steady for about 2 hours. She has had nosebleeds in the past but not for quite a long time and has not really had a problem with them. Patient is not on a blood thinner, she is on aspirin 81 mg. Patient was just hospitalized last week with sepsis and is doing much better. Patient's daughter, who is a nurse, says that the patient's platelet count was low last week, possibly because of medication she was getting in the hospital. Looking at her record, her platelet count had a low of 70 on August 12, on August 15 was 139. She has not had chronic problems with thrombocytopenia. Review of Systems Review of Systems Constitutional: Denies fever or chills [] HENT: As in history of present illness Respiratory: Denies shortness of breath [] GI: Denies vomiting Current Medications Current Medications Current Medications Medications (Trade) Dose Ordered Sig/Margo Start Time Stop Time Status Last Admin Dose Admin Lidocaine HCl (Uro-Jet) 1 jonas 1X ONCE 08/16/17 09:00 08/16/17 09:08 DC 08/16/17 09:05 1 JONAS Oxymetazoline HCl (Afrin) 2 spray 1X ONCE 08/16/17 09:00 08/16/17 09:08 DC 08/16/17 09:03 2 SPRAY Allergies Allergies Allergies Coded Allergies Type Severity Reaction Last Updated Verified No Known Drug Allergies 04/21/16 No Physical Exam Physical Exam Constitutional: Well developed, well nourished, no acute distress, non-toxic appearance. Alert, nontoxic, vital signs stable. HENT: Normocephalic, atraumatic, bilateral external ears normal, oropharynx moist, no oral exudates. Nose: Fresh Blood present in the right naris but it is not actively bleeding at this time. Anterior nasal septum is hyperemic and generally red but I do not see a clot or evidence of the location of the recent bleeding. Eyes: conjunctiva normal, no discharge. [] Neck: Normal range of motion, no stridor. [] Cardiovascular:Heart rate regular rhythm, no murmur [] Lungs & Thorax: Bilateral breath sounds clear to auscultation [] Extremities: no clubbing, ROM intact, no edema. [] Neurologic: Alert and oriented X 3, normal motor function, no focal deficits noted. [] Current Patient Data Vital Signs Vital Signs Date Time Temp Pulse Resp B/P (MAP) Pulse Ox O2 Delivery O2 Flow Rate FiO2 08/16/17 09:09 98.3 89 24 96 Room Air EKG EKG [] Radiology/Procedures Radiology/Procedures Procedure: Epistaxis management by me The patient blew her nose gently and no blood clots came out. ED nursing staff had previously removed some blood clots. Afrin nasal spray was instilled in the right naris First, lidocaine jelly was used on a large Merocel sponge with a central tube which was placed in the right naris, however, patient was not able to tolerate the entire length of the Merocel sponge so it was approximately one third still hanging out of the naris. I determined that is not an optimal situation for discharge, so that was removed, and lidocaine jelly was used on a small Merocel sponge that was then instilled in the right naris by me without difficulty. Patient tolerated the procedure well. We will observe her for a period of time while getting a CBC result to check her platelets.[] Course & Med Decision Making Course & Med Decision Making Pertinent Labs and Imaging studies reviewed. (See chart for details) 87-year-old female with a history of recent hospitalization for sepsis with some thrombocytopenia during that hospitalization, she is now much improved from that standpoint but presents with a nosebleed off and on for a couple of hours. A Merocel sponge was placed in the emergency department. She will be observed while we check a CBC. Today her platelet count is 244. See discharge instructions for plan. [] Dragon Disclaimer Dragon Disclaimer This electronic medical record was generated, in whole or in part, using a voice recognition dictation system. Departure Departure: Impression: Primary Impression: Right-sided nosebleed Disposition: HOME, SELF-CARE Condition: IMPROVED Referrals: KARRIE GOLDSMITH APRN (PCP) Patient Instructions: Nosebleed, [id number] Additional Instructions: If possible, leave the sponge in your nose until tomorrow. You may gently remove the sponge tomorrow. For 2-3 days, try to avoid blowing your nose, sneezing, coughing, etc. We do not want to disturb or dislodge the tiny blood clot that is on a tiny blood vessel in your nose from bleeding. Continue to take low-dose aspirin as prescribed. If nosebleed happens again, follow the following instructions: 1. Blow your nose gently to remove blood clots 2. Dolores 2-3 sprays of Afrin nasal spray into your nose 3. Place the nasal clamp on your nose and leave it on for at least 30 minutes 4. If your nose is bleeding even with the clamp on, or if it keeps bleeding and you can get it stopped by using the above instructions, return to emergency. If nosebleed continues off and on and it is not an emergency but it continues to bother you, you might want to see an ear, nose, throat specialist. PADMINI TORRES MD Aug 16, 2017 09:51
[2017-08-16 10:00] VITALS: BP 160/80
== END 2017-08-16 10:00 | disposition home or self-care (01) ==
LOC: ER 08:44
DX: R04.0 Epistaxis (principal); I10 Essential (primary) hypertension; K21.9 Gastro-esophageal reflux disease without esophagitis
CPT/HCPCS: 30901; 36415; 85025; 99284